=== PATIENT | female | born 1990 | race Caucasian/White ===

== ENCOUNTER 2018-01-27 04:05 | Emergency (ER) | payer MEDICAID, SELFPAY ==
[2018-01-27 04:06] VITALS: BP 108/74; PULSE 83; RESP 16; TEMP 36.8; O2SAT 100; BMI 27.3
--- NOTE | 2018-01-27 04:11 | CT_ITS ---
STUDY: CT ABDOMEN AND PELVIS WITHOUT CONTRAST REASON FOR EXAM: Female, 27 years old. Left lower quadrant pain RADIATION DOSAGE (If Supplied By Facility): CTDIvol = ( 7.14 ) mGy, DLP = ( 319.48 ) mGycm TECHNIQUE: Transaxial images were obtained from the dome of the diaphragm to the symphysis pubis without oral contrast, and without intravenous contrast. Sagittal and coronal images were reconstructed. Individualized dose optimization techniques were used for this CT. COMPARISON: None. FINDINGS: The visualized lung bases are unremarkable. The visualized portions of the heart are within normal limits. Normal liver. Normal gallbladder and extrahepatic biliary system. Normal spleen. Normal pancreas. Normal bilateral adrenal glands. Normal right kidney. 2 mm nonobstructing left renal stone. Normal visualized stomach. Normal small intestine. Normal colon. The appendix is visualized and appears normal. Normal abdominal aorta. Normal inferior vena cava. Normal retroperitoneum. Normal urinary bladder. Free pelvic fluid. Normal abdominal wall. Normal osseous structures. CT/Abdomen/Pelvis without Cont IMPRESSION: No evidence of diverticulitis. No evidence of acute intestinal pathology or acute obstructive uropathy. Free pelvic fluid. Electronically Signed: Roderick Pearson MD at 5:40 EDT Tel , Service support ,
[2018-01-27 04:22] LABS: Red Blood Cells-Urine 0 SEEN /hpf (0-5)
[2018-01-27 04:40] LABS: Color, Urine Yellow (Yellow); Glucose, Dipstick Normal (Normal); Ketone-Dipstick Negative (Negative); Leukocyte Esterase-Dipstick 100 /ul (Negative); Nitrite-Dipstick Negative (Negative); Occult Blood-Urine 10 /ul (Negative); Protein-Dipstick 30 mg/dl (Negative); Specific Gravity, Urine 1.025 (1.002-1.030); Urine Bilirubin Dipstick Negative (Negative); Urine Clarity Clear (Clear); Urine Urobilinogen Normal (Normal)
[2018-01-27 04:44] LABS: Absolute Lymphocyte Count 2.12 X10^3/ul (0.83-4.51); Absolute Neutrophil Count 4.9 X10^3/uL (2.0-7.7); Basophil# 0.03 X10^3/uL; Basophil% 0.4 % (0-1); Eosinophil# 0.21 X10^3/uL; Eosinophils% 2.6 % (0-5); Hematocrit 42.2 % (37-47); Hemoglobin 14.4 g/dl (12.0-15.0); Lymphocyte # 2.12 X10^3/ul (4.0); Lymphocyte % 26.4 % (19-41); Mean Corp Hgb Conc 34.1 g/gl (32-36); Mean Corpuscular Hgb 30.7 pg (27.0-32.0); Mean Platelet Vol. 10.8 fl (6.2-12.0); Monocyte# 0.77 X10^3/uL; Monocyte% 9.6 % (0-10); Neutrophil # 4.89 X10^3/uL (2.7-7.7); Neutrophil % 60.8 % (47-70); POSITIVE COUNT NO; POSITIVE DIFFERENTIAL NO; POSITIVE MORPHOLOGY NO; Platelet Count 204 K/mm3 (150-450); RBC Distribution Width CV 12.5 % (11.6-14.6); RBC Distribution Width SD 40.4 fl (35.1-43.9); Red Blood Count 4.69 M/mm3 (4.2-5.4)
[2018-01-27 04:46] LABS: Bacteria RARE /hpf (None Seen); Mucous, Urine 1+ /hpf (<or=2+); Squamous Epithelial Cells - UA 0-5 SEEN /hpf (5-10); White Blood Cells 0-5 SEEN /hpf (0-5)
[2018-01-27] MEDS: 0.9% Normal Saline 1,000 ML 125 ML IV (04:47)
[2018-01-27 04:56] LABS: Anion Gap 10 (5-15); BUN 9 mg/dL (7-18); Calcium,Total 8.4 mg/dL (8.5-10.1); Chloride 108 mmol/L (98-107); Creatinine, Serum 0.69 mg/dL (0.55-1.02); EST Glomerular Filtration Rate 109 mL/min (>60); Est Glom Filt Rate - Afr Amer 132 mL/min (>60); Estimated Creatinine Clearance 98.58 ml/min; Glucose 86 mg/dL (74-106); Potassium 3.9 mmol/L (3.5-5.1); Sodium Level 140 mmol/L (136-145)
[2018-01-27 05:03] LABS: Pregnancy, Serum, hCG Quali. NEGATIVE Negative (0-9 Nonpreg)
--- NOTE | 2018-01-27 05:45 | ED.VISSUMM ---
- ER Visit Summary Date of Service: 01/27/18 Chief Complaint: [Abdominal pain] History of Present Illness: The patient is a 27 F [presents to the emergency department with abdominal pain that started initially yesterday. Patient states she had some mild discomfort in the left upper quadrant yesterday afternoon. Patient states at 3 AM she was awoken with severe pain is more left lower quadrant. Patient states the pain initially severe. Patient thought that maybe she needed to urinate and after urinating had more lower abdominal discomfort. Patient denies hematuria. Patient denies any fever. Patient denies nausea or vomiting. Patient denies diarrhea. Patient denies blood in her stool or black tarry stool. Patient has not had pain like this before. Currently the pains improved and rates it a 5 out of 10.] Patient's last menstrual period was 09 January. Physical Examination: [HEENT-PERRLA, EOMI. Cranial nerves II through XII grossly intact. TMs clear. Mucous membranes moist. No adenopathy. Cardiovascular-regular rate and rhythm without murmur or ectopy Lungs-clear to auscultation, chest wall stable without crepitus or subcu emphysema Abdomen-normoactive bowel sounds, soft. patient has some mild tenderness in left lower quadrant. There is no rebound, rigidity, or perineal signs. No masses palpated. No CVA tenderness. Extremities-intact ?4, normal range of motion, normal pulses, atraumatic] Test Results: [CBC with differential was normal. Chemistries were normal. Urinalysis was unremarkable. HCG was negative. CT flank showed some free pelvic fluid but otherwise nothing acute.] Emergency Department Course and Treatment: [Patient did not want anything for pain in the department. On repeat examination at 5:45 AM she rates her pain a 2 out of 10 in her abdomen is benign.] I suspect patient may have had ovarian cyst that may have ruptured or midcycle pain. Do not feel her exam consistent with torsion. Treatment Plan: [Patient advised use ibuprofen for discomfort. Patient to follow-up with her primary care physician within next 3-5 days. Patient advised to return if worsening pain, fever, or condition should worsen in any way.] Disposition: [Discharged home in stable condition] Impression: [Abdominal pain-etiology uncertain] This note was generated with [employer] dictation software. It may contain incorrect words, spelling, and punctuation that were not noted in review of the chart prior to signing ED Disposition - Plan for ED Patient: Chief Complaint: Abd Pain Referrals: Shai Lyn MD [Primary Care Provider] -
--- NOTE | 2018-01-27 05:49 | ED.DEP ---
ED Disposition - Plan for ED Patient: Chief Complaint: Abd Pain Instructions: ED Abdominal Pain Unkn Cause Referrals: Shai Lyn MD [Primary Care Provider] - 3-5 Days
[2018-01-27 05:56] VITALS: BP 90/60; PULSE 76; RESP 17; O2SAT 100
--- NOTE | 2018-01-27 05:56 | ED.RN ---
IV DC'ED, CATHETER INTACT, SMALL GAUZE DRESSING PLACED. DISCHARGE INSTRUCTIONS GIVEN TO AND REVIEWED WITH PATIENT, PATIENT DENIES QUESTIONS OR CONCERNS AND VOICES UNDERSTANDING OF DISCHARGE INSTRUCTIONS. PT AMBULATES OUT OF ROOM WITHOUT DIFFICULTY.
== END 2018-01-27 05:56 | disposition home or self-care (01) ==
PROVIDERS: Emergency Provider Emergency Medicine; Family Provider Family Medicine; PCP Family Medicine
DX: R10.32 Left lower quadrant pain (principal)
CPT/HCPCS: 74176; 80048; 81001; 84703; 85025; 96360; 99283; J7030; A4216

== ENCOUNTER → 2018-02-13 13:00 | Outpatient (CLI) | payer MEDICAID, SELFPAY ==
--- NOTE | 2018-02-13 13:00 | DT_ITS ---
This patient was seen during an EMR downtime February 13, 2018 - February 20, 2018. This patient may have a combination of paper and electronic documentation or all paper documentation. All documentation is viewable within the e-chart portion of [facility] for each patient visit.
--- NOTE | 2018-02-13 13:46 | US_ITS ---
STUDY: ULTRASOUND OF THE FEMALE PELVIS - COMPLETE REASON FOR EXAM: Female, 27 years old. Pain. LMP: February 09, 2018. TECHNIQUE: Transabdominal and Transvaginal TECHNICAL QUALITY: Adequate. COMPARISON: CT of the abdomen and pelvis, January 28, 2018. FINDINGS: The uterus is anteverted and is in a midline position. The uterus measures 9 x 6.7 x 4.4 cm. Normal uterine cervix. The endometrium measures 3.3 mm in thickness, and is hyperechoic. There is no demonstrated endometrial mass. There is no demonstrated myometrial mass. I.U.D. - The patient does not have an I.U.D. The right ovary is visualized. The right ovary measures 2.7 x 2.2 x 2.4 cm. There are multiple follicles of the right ovary without a dominant cyst. There is no visualized right adnexal mass or complex lesion. There is normal arterial and normal venous vascularity. The left ovary is visualized. The left ovary measures 2.7 x 2.6 x 1.7 cm. There are multiple follicles of the left ovary without a dominant cyst. There is no visualized left adnexal mass or complex lesion. There is normal arterial and normal venous vascularity. There is no fluid in the cul-de-sac. The pre void volume of the bladder was to 87 ml. The urinary bladder is unremarkable. Polycystic ovary disease: No. US/Pelvic (Non ) IMPRESSION: Normal uterus and ovaries. Electronically Signed: Anatoliy Lloyd DO at 16:09 EDT Tel [phone], Service support ,
== END ==
PROVIDERS: Family Provider Family Medicine; PCP Family Medicine; Visit Provider Nurse Practitioner Women's Health
DX: R10.2 Pelvic and perineal pain (principal)
CPT/HCPCS: 76830; 76856; 93976

== ENCOUNTER → 2018-03-20 16:40 | Outpatient (CLI) | payer MEDICAID, SELFPAY ==
[2018-03-21 02:00] LABS: Chlamydia Trachomatis by PCR Negative (Negative); Neisserai gonorrhoeae by PCR Negative (Negative); Probe Check PASS; Sample Adequacy Control PASS; Specimen Processing Control PASS
[2018-03-24 14:31] LABS: HPV Reflexed? NOT INDICATED
== END ==
PROVIDERS: Family Provider Family Medicine; PCP Family Medicine; Visit Provider Obstetrics & Gynecology
DX: Z11.3 Encounter for screening for infections with a predominantly sexual mode of transmission (principal); Z12.4 Encounter for screening for malignant neoplasm of cervix
CPT/HCPCS: 87491; 87591; 88175; G0145

== ENCOUNTER → 2018-11-14 17:46 | Outpatient (CLI) | payer MEDICAID, SELFPAY ==
[2018-11-14 16:28] VITALS: BMI 26.9
== END ==
PROVIDERS: Family Provider Family Medicine; PCP Family Medicine; Referring Provider Obstetrics & Gynecology; Visit Provider Obstetrics & Gynecology
DX: N89.8 Other specified noninflammatory disorders of vagina (principal)
CPT/HCPCS: 87070; 87077; 87106; 87205

== ENCOUNTER → 2018-12-12 14:16 | Outpatient (CLI) | payer MEDICAID, SELFPAY ==
[2018-12-12 13:30] VITALS: BMI 26.9
[2018-12-12 14:59] LABS: Absolute Lymphocyte Count 1.88 X10^3/ul (0.83-4.51); Absolute Neutrophil Count 5.9 X10^3/uL (2.0-7.7); Basophil# 0.03 X10^3/uL; Basophil% 0.3 % (0-1); Eosinophil# 0.13 X10^3/uL; Eosinophils% 1.5 % (0-5); Hematocrit 38.8 % (37-47); Hemoglobin 13.3 g/dl (12.0-15.0); Lymphocyte # 1.88 X10^3/ul (4.0); Lymphocyte % 21.5 % (19-41); Mean Corp Hgb Conc 34.3 g/gl (32-36); Mean Corpuscular Hgb 31.3 pg (27.0-32.0); Mean Corpuscular Volume 91.3 fL (81-99); Mean Platelet Vol. 10.1 fl (6.2-12.0); Monocyte# 0.78 X10^3/uL; Monocyte% 8.9 % (0-10); Neutrophil # 5.91 X10^3/uL (2.7-7.7); Neutrophil % 67.6 % (47-70); Platelet Count 274 K/mm3 (150-450); RBC Distribution Width CV 12.4 % (11.6-14.6); RBC Distribution Width SD 41.3 fl (35.1-43.9); Red Blood Count 4.25 M/mm3 (4.2-5.4); White Blood Count 8.8 K/mm3 (4.4-11.0)
[2018-12-12 15:00] LABS: POSITIVE COUNT NO; POSITIVE DIFFERENTIAL NO; POSITIVE MORPHOLOGY NO
[2018-12-12 16:21] LABS: HIV - WCH Non-Reactive (Nonreactive); Rubella IgG 44.9 IU/mL
[2018-12-12 20:47] LABS: Chlamydia Trachomatis by PCR Negative (Negative); Neisserai gonorrhoeae by PCR Negative (Negative); Probe Check PASS; Sample Adequacy Control PASS; Specimen Processing Control PASS
[2018-12-15 03:39] LABS: Rapid Plasmin Reagin (RPR) NONREACTIVE (NONREACTIVE)
[2018-12-15 12:17] LABS: HEPATITIS B SURFACE AG Negative (Negative)
== END ==
PROVIDERS: Family Provider Family Medicine; PCP Family Medicine; Visit Provider Obstetrics & Gynecology
DX: Z31.430 Encounter of female for testing for genetic disease carrier status for procreative management (principal); Z34.90 Encounter for supervision of normal pregnancy, unspecified, unspecified trimester
CPT/HCPCS: 36415; 85025; 86592; 86703; 86762; 86850; 86900; 87086; 87088; 87340; 87491; 87591

== ENCOUNTER → 2018-12-22 | Outpatient (CLI) | payer MEDICAID, SELFPAY ==
[2018-12-12 13:30] VITALS: BMI 26.9
== END | disposition home or self-care (01) ==
LOC: PAVLAB 09:51
PROVIDERS: Family Provider Family Medicine; PCP Family Medicine; Visit Provider Obstetrics & Gynecology
DX: Z31.430 Encounter of female for testing for genetic disease carrier status for procreative management (principal)
CPT/HCPCS: 36415

== ENCOUNTER → 2019-01-11 | Outpatient (CLI) | payer MEDICAID, SELFPAY ==
[2019-01-11 11:12] VITALS: BMI 26.9
== END | disposition home or self-care (01) ==
LOC: PAVLAB 12:44
PROVIDERS: Family Provider Family Medicine; PCP Family Medicine; Visit Provider Nurse Practitioner Women's Health
DX: O28.5 Abnormal chromosomal and genetic finding on antenatal screening of mother (principal); Z3A.00 Weeks of gestation of pregnancy not specified
CPT/HCPCS: 36415

== ENCOUNTER 2019-04-17 11:05 | Outpatient (CLI) | payer MEDICAID, SELFPAY ==
[2019-04-03 10:37] VITALS: BMI 26.9
[2019-04-17 11:22] VITALS: BMI 30.7
[2019-04-17 11:36] LABS: Color, Urine Yellow (Yellow); Glucose, Dipstick Normal (Normal); Ketone-Dipstick 5 mg/dl (Negative); Leukocyte Esterase-Dipstick 500 /ul (Negative); Nitrite-Dipstick Negative (Negative); Occult Blood-Urine Negative /ul (Negative); Protein-Dipstick Negative (Negative); Specific Gravity, Urine 1.015 (1.002-1.030); Urine Bilirubin Dipstick Negative (Negative); Urine Clarity Sl. Cloudy (Clear); Urine Urobilinogen Normal (Normal)
[2019-04-17 12:40] LABS: ROM Internal Control Test YES-OK TO RESULT pt. (Internal QC)
[2019-04-17 12:41] LABS: ROM Patient Test Negative (Negative)
[2019-04-17 12:48] LABS: Fetal Fibronectin Negative
--- NOTE | 2019-04-19 06:38 | OB.TRI.PN_ITS ---
Progress Notes Date of Service: 04/17/19 Progress Note: patient co contractions and intermittent abdominal pain fht 140 moderate variability [id number] accels no decelerations category I tracing [place]: no regular neg ffn no cervical dilation A/P: threatened labor neg ffn reactive nst dc home labor precautions Laboratory Studies: Laboratory Tests 04/17/19 04/17/19 04/17/19 Range/Units 12:00 12:00 11:15 Urine Color Yellow (Yellow) Urine Clarity Sl. Cloudy (Clear) Urine pH 6.0 (5.0 - 8.0) Ur Specific [place] 1.015 (1.002-1.030) Urine Protein Negative (Negative) mg/dl Urine Glucose (UA) Normal (Normal) mg/dl Urine Ketones 5 H (Negative) mg/dl Urine Occult Blood Negative (Negative) /ul Urine Nitrite Negative (Negative) Urine Bilirubin Negative (Negative) mg/dL Urine Urobilinogen Normal (Normal) mg/dl Ur Leukocyte Esterase 500 H (Negative) /ul Vag Amniotic Fld Detect Negative (Negative) Fibronectin Negative Multi Select Codes - Urinary/Genital Urinary/Genital CPT Codes: 47673-54 non-stress test Interp
== END 2019-04-17 13:50 | disposition home or self-care (01) ==
LOC: WPOUT 11:17 → WP 11:17
PROVIDERS: Family Provider Family Medicine; PCP Family Medicine; Referring Provider Obstetrics & Gynecology; Visit Provider Obstetrics & Gynecology
DX: O60.00 Preterm labor without delivery, unspecified trimester (principal); Z3A.00 Weeks of gestation of pregnancy not specified
CPT/HCPCS: 59025; 59050; 81002; 82731; 84112; 87086; 87088; 99218; G0378

== ENCOUNTER → 2019-04-24 10:53 | Outpatient (CLI) | payer MEDICAID, SELFPAY ==
[2019-04-24 10:49] VITALS: BMI 30.7
[2019-04-24 11:06] LABS: Absolute Lymphocyte Count 1.84 X10^3/uL (0.83-4.51); Absolute Neutrophil Count 5.6 X10^3/uL (2.0-7.7); Basophil# 0.04 X10^3/uL; Basophil% 0.5 % (0-1); Eosinophil# 0.19 X10^3/uL; Eosinophils% 2.3 % (0-5); Hematocrit 38.5 % (37-47); Lymphocyte # 1.84 X10^3/ul (4.0); Lymphocyte % 22.2 % (19-41); Mean Corp Hgb Conc 33.8 g/dL (32-36); Mean Corpuscular Hgb 31.4 pg (27.0-32.0); Mean Platelet Vol. 9.8 fl (6.2-12.0); Monocyte# 0.53 X10^3/uL; Monocyte% 6.4 % (0-10); NRBC Flagged by Analyzer 0 % (0-5); Neutrophil % 67.8 % (47-70); Platelet Count 205 K/mm3 (150-450); RBC Distribution Width CV 12.1 % (11.6-14.6); RBC Distribution Width SD 41.5 fl (35.1-43.9); Red Blood Count 4.14 M/mm3 (4.2-5.4); White Blood Count 8.3 K/mm3 (4.4-11.0)
[2019-04-24 11:16] LABS: Glucose Challenge Gest 1H 50g 78 mg/dL (70-140)
== END ==
PROVIDERS: Family Provider Family Medicine; PCP Family Medicine; Referring Provider Obstetrics & Gynecology; Visit Provider Obstetrics & Gynecology
DX: Z34.83 Encounter for supervision of other normal pregnancy, third trimester (principal); Z3A.28 28 weeks gestation of pregnancy
CPT/HCPCS: 36415; 82950; 85025

== ENCOUNTER → 2019-06-21 | Outpatient (CLI) | payer MEDICAID, SELFPAY ==
[2019-06-21 11:12] VITALS: BMI 30.7
== END | disposition home or self-care (01) ==
LOC: LABSPEC 12:59
PROVIDERS: Family Provider Family Medicine; PCP Family Medicine; Referring Provider Obstetrics & Gynecology; Visit Provider Obstetrics & Gynecology
DX: Z34.90 Encounter for supervision of normal pregnancy, unspecified, unspecified trimester (principal)
CPT/HCPCS: 87081

== ENCOUNTER 2019-07-11 12:36 | Inpatient (IN) | payer MEDICAID, SELFPAY ==
[2019-07-05 09:21] VITALS: BMI 30.7
[2019-07-12 01:13] VITALS: BMI 33.0
[2019-07-12] MEDS: Lactated Ringers 1,000 ML 200 ML IV ×2 (01:53→06:35)
[2019-07-12 02:12] LABS: Absolute Lymphocyte Count 1.71 X10^3/uL (0.83-4.51); Absolute Neutrophil Count 7.5 X10^3/uL (2.0-7.7); Basophil# 0.04 X10^3/uL; Basophil% 0.4 % (0-1); Eosinophil# 0.13 X10^3/uL; Eosinophils% 1.2 % (0-5); Hematocrit 35.6 % (37-47); Hemoglobin 11.8 g/dL (12.0-15.0); Lymphocyte # 1.71 X10^3/ul (4.0); Lymphocyte % 16.4 % (19-41); Mean Corp Hgb Conc 33.1 g/dL (32-36); Mean Corpuscular Hgb 29.4 pg (27.0-32.0); Mean Corpuscular Volume 88.8 fL (81-99); Mean Platelet Vol. 10.6 fl (6.2-12.0); Monocyte# 0.97 X10^3/uL; Monocyte% 9.3 % (0-10); NRBC Flagged by Analyzer 0 % (0-5); Neutrophil # 7.45 X10^3/uL (2.7-7.7); Neutrophil % 71.5 % (47-70); Platelet Count 186 K/mm3 (150-450); RBC Distribution Width CV 13.1 % (11.6-14.6); RBC Distribution Width SD 42.9 fl (35.1-43.9); Red Blood Count 4.01 M/mm3 (4.2-5.4); White Blood Count 10.4 K/mm3 (4.4-11.0)
[2019-07-12] MEDS: Ondansetron 4 MG/2 ML Vial IV (04:14)
--- NOTE | 2019-07-12 05:34 | PCM.HP.OB ---
- Problem List (1) Active labor at term Status: Acute (2) control counseling Status: Acute Comment: wants tubal ligation. title 19 signed 05/22/19 (3) positive polycystic kidney recessive gene Status: Acute Comment: FOB negative testing (4) Depression affecting Status: Acute Comment: no meds at present, counseling encouraged (5) Status: Acute Qualifiers: Comment: NIPT- low risk male declines AFP screening. nl ultrasound. (6) Supervision of normal Status: Acute Qualifiers: Comment: PRR DEMETRICE 07/17/19 boy Shaun PC:Shobha Carter Zoey FOB Brian (has had penitentiary time in ) History Date of Admission: 05/09/17 Final DEMETRICE: 07/17/19 Final DEMETRICE Source: US <20 weeks Gestational age: 39 Weeks and 3 Days History of this : This is a 28 year-old, at 39 weeks gestational age presents IAL srom. she has had an uncomplicated . she co regular ctx and clear lof since 1 am Allergies No Known Allergies Allergy (Verified 07/12/19 01:14) Home Medications: Home Medications Ranitidine HCl [Acid Child Watch Attendant] 150 mg PO BID 07/12/19 Smoking Status: Never smoker History Past Pregnancies: Past Pregnancies 3 previous term Labs: Mom's Problem List Problem Status Onset Code Active labor at term Acute Mom's Labs & Results 07/12/19 07/12/19 01:53 01:53 WBC 10.4 RBC 4.01 L Hgb 11.8 L Hct 35.6 L MCV 88.8 MCH 29.4 MCHC 33.1 RDW Std Deviation 42.9 RDW Coeff of Anna 13.1 Plt Count 186 MPV 10.6 Immature Gran % (Auto) 1.200 H Neut % (Auto) 71.5 H Lymph % (Auto) 16.4 L Casey % (Auto) 9.3 Eos % (Auto) 1.2 Baso % (Auto) 0.4 Absolute Neuts (auto) 7.5 Absolute Lymphs (auto) 1.71 Nucleated RBC % 0 Blood Type AB POSITIVE Antibody Screen NEGATIVE Course Did the patient receive Yes care? Labs Blood Type: AB RH: POSITIVE RPR/VDRL/Syphilis Nonreactive Rubella status Immune HbSAg Negative Date Done: 12/12/18 Chlamydia Negative Gonorrhea Negative HIV/AIDS Non-Reactive Group B Strep: Negative Current Obstetrical History Gestational Diabetes No Incompetent Cervix No Infertility No IUGR No Macrosomia No Hypertension/Pre-eclampsia No Placenta Previa/Abruption No PTL/PROM No Uterine anomaly No Oligohydramnios No Polyhydramnios No Multiple gestation No Past Medical History Asthma Yes Diabetes No Hypertension No Heart disease No Mitral valve prolapse No Neurologic/Seizure disorder/ No Migraines Kidney disease Yes: Recessive kidney gene Liver disease No Varicosities No Clotting disorders/Hx of DVT No Thyroid Dysfunction Yes: hyperthyroidism, not following up regularly with PCP Other medical diseases No Psychiatric disorders Yes: pp depression Major trauma No Abnormal PAP smear No Sleep apnea No Mammogram in the last 2 years No Social History Marital Status: SINGLE Alleged father Clarence Bourgeois Hx Smoking No Smoking Status Never smoker Expected Delivery Method: Spontaneous Vaginal Review of Systems Constitutional: Denies: Fever, Malaise Eyes: Denies: Blurred vision, Vision Change HEENT: Denies: Head Aches, Visual Changes Cardiovascular: Denies: Chest Pain, Palpitations Respiratory: Denies: Cough, Shortness of Breath, Wheezing Gastrointestinal: Denies: Abdominal Pain, Diarrhea, Nausea, Vomiting Genitourinary: Denies: Dysuria, Hematuria Musculoskeletal: Denies: Joint Pain, Muscle pain Skin: Denies: Lesions, Rash Neurological: Denies: Blurred vision, Focal weakness, Headaches Psychiatric: Denies: Anxiety, Depression Endocrine: Denies: Heat/ Cold Intolerance Hematologic/ Lymphatic: Denies: Easy Bruising, Easy Bleeding Physical Exam General: Alert, Cooperative, No apparent distress HEENT: Atraumatic, Normocephalic. Negative for: Thyromegaly, Lymphadenopathy Cardiovascular: Regular rate Lungs: Normal air movement Abdomen: Soft, Non Tender, Gravid Neurological: Deep Tendon Reflexes 2+/4 and Symmetrical, Neuro grossly intact. Negative for: Clonus SUPERVISOR TANK HOUSE: Normal external genitalia. Negative for: Vulvar lesions Estimated gestational size: Appropriate for gestational size Presentation: Cephalic Cervix Dilation (cm): 4 Assessment/Plan All Active Problems (Last Reviewed 07/05/19 @ 09:20 by Matilde Bustos) Active labor at term (Acute) control counseling (Acute) positive polycystic kidney recessive gene (Acute) Depression affecting (Acute) (Acute) Supervision of normal (Acute) This is a 28 year-old, , at 39 weeks gestational age presents IAL SROM. IAL plan minimal intervention but open to epidural desires PPTL gbs neg
[2019-07-12] MEDS: Oxytocin 30 units/NS 500 ml 30 UNITS/500 ML IV.SOLN IV (06:35)
[2019-07-12] MEDS: Lactated Ringers 500 ML 999 ML IV (06:42)
[2019-07-12] MEDS: fentaNYL-bupivacaine (epidural) 100 ML BAG EPIDURAL (07:25)
[2019-07-12] MEDS: Oxytocin 30 units/NS 500 ml 30 UNITS/500 ML IV.SOLN 334 UNITS IV (08:25)
[2019-07-12] MEDS: Acetaminophen 325 MG Tablet PO (11:03)
[2019-07-12 11:53] VITALS: BP 105/61; PULSE 81; RESP 16; TEMP 36.6
[2019-07-12] MEDS: Naproxen 250 MG Tablet 500 MG PO (13:20)
[2019-07-12 16:20] VITALS: BP 98/61; PULSE 86; RESP 12; TEMP 36.3
--- NOTE | 2019-07-12 16:56 | OP.PCM_ITS ---
Problem List (1) Active labor at term Status: Acute (2) control counseling Status: Acute Comment: wants tubal ligation. title 19 signed 05/22/19 (3) positive polycystic kidney recessive gene Status: Acute Comment: FOB negative testing (4) Depression affecting Status: Acute Comment: no meds at present, counseling encouraged (5) Status: Acute Qualifiers: Comment: NIPT- low risk male declines AFP screening. nl ultrasound. (6) Supervision of normal Status: Acute Qualifiers: Comment: PRR DEMETRICE 07/17/19 boy [place] PC:Shobha Carter Zoey FOB Brian (has had [facility] time in ) Vaginal Delivery Maternal Presentation: Active Labor ial 39 weeks Amniotic Membrane Rupture Type: Spontaneous at home Amniotic Fluid Description: Clear Date of Procedure: 07/12/19 Pre-Operative Diagnosis: srom ial Post-Operative Diagnosis: same Surgery/ Procedure Performed: Spontaneous Vaginal Delivery Type of Anesthesia: Epidural Description of Procedure: Patient began pushing and delivered the head in the ZOHREH presentation. The head was delivered atraumatically . The anterior and posterior shoulders delivered without complication followed by the rest of the infant and the was placed on the maternal abdomen. Delayed cord clamping was employed for approximately 60 seconds. Cord was clamped and cut and gentle traction was applied to the cord and the placenta delivered spontaneously immediately following it was noted to be intact with three-vessel cord. The perineum and vagina were inspected and noted to have no laceration. Patient and tolerated delivery well. Presentation: ZOHREH Placental Delivery Description: Spontaneous Placenta Disposition: [facility] Cord Entanglement: None A gender: Male Episiotomy Description: None Laceration: None Medications given after delivery: IV Pitocin Complications: None
[2019-07-12] MEDS: Acetaminophen 500 MG Tablet 1000 MG PO (19:31)
[2019-07-12] MEDS: oxyCODONE 5 MG Tablet PO (20:50)
[2019-07-12 20:51] VITALS: BP 108/58; PULSE 78; RESP 18; TEMP 36.3
[2019-07-12 23:40] VITALS: BP 107/55; PULSE 75; RESP 16; TEMP 36.6
--- NOTE | 2019-07-13 00:34 | NURSING ---
Security called d/t pt. and FOB arguing loudly in room. This RN heard pt. tell FORaul to just go back and do drugs like you used to. NAISHA stormed off unit before security could show up. This RN went into room to check on pt. and infant. Pt. denies any safety concerns at this time. She told this RN that ANISHA just got out of [facility] recently and restarted on his Suboxone. States that he keeps on pacing around and getting in and out of shower and bothering her, which has lead to the arguing and yelling. Pt. states she doesn't want to kick him off the unit because it's cold outside and he wouldn't have a way to get anywhere. Pt. asked how early she could leave tomorrow because she does not live with him and won't have to deal with his behaviors. RN asked again if their were any safety concerns for her safety or 's and pt. again denied. This RN told pt. to call out and ask for orange juice if ANISHA acts up and she needs help or has safety concerns.
[2019-07-13 03:35] VITALS: BP 99/59; PULSE 67; RESP 17; TEMP 36.4; O2SAT 97
[2019-07-13] MEDS: Senna/Docusate Sodium 1 Tablet PO (03:38)
[2019-07-13] MEDS: Naproxen 250 MG Tablet 500 MG PO (03:38)
[2019-07-13] MEDS: oxyCODONE 5 MG Tablet PO (08:10)
[2019-07-13 08:28] VITALS: BP 90/54; PULSE 72; RESP 16; TEMP 36.4
--- NOTE | 2019-07-13 08:29 | NURSING ---
pt. asymptomatic, denies dizziness
--- NOTE | 2019-07-13 08:55 | NURSING ---
This RN discussed same plan with pt. of previous RN of pt. calling to ask for orange juice if she has safety concerns, pt. denied concerns
[2019-07-13] MEDS: Acetaminophen 500 MG Tablet 1000 MG PO (10:30)
--- NOTE | 2019-07-13 11:39 | PCM.PN.OB ---
Patient Problems: Active and Suspected Problems (Last Reviewed 07/05/19 @ 09:20 by Matilde Bustos) Active labor at term (Acute) Subjective: doing well no complaints pain controlled no CP SOB N V ambulating well tolerating po lochia moderate, going well - Physical Exam Vitals/I&O's: Vital Signs Temp Pulse Resp BP Pulse Ox 97.5 F L 72 16 90/54 L 97 07/13/19 08:28 07/13/19 08:28 07/13/19 08:28 07/13/19 08:28 07/13/19 03:35 Oxygen Delivery Method Room Air Weight: 180 lb 15.992 oz Body Mass Index (BMI) 33.0 Intake and Output for Last 24 Hours 07/11/19 07/12/19 07/13/19 23:59 23:59 23:59 Intake Total 2441.83 / 2441.83 Output Total 50 / 50 Balance 2391.83 / 2391.83 Current Medications Acetaminophen (Tylenol) 1,000 mg PO Q8H PRN PRN PRN Reason: Pain Score 1-3/10 Last Admin: 07/13/19 10:30 Dose: 1,000 mg Documented by: Bisacodyl (Dulcolax) 10 mg RECTAL UD PRN PRN Reason: If no BM Dibucaine (Dibucaine) 1 applic TOPICAL TID PRN PRN; Protocol PRN Reason: Discomfort Hydrocortisone (Hytone) 1 applic TOPICAL TID PRN PRN; Protocol PRN Reason: Discomfort Methylergonovine Maleate (Methergine) 0.2 mg IM X1 PRN PRN Reason: Excess bleeding/uterine atony Naproxen (Naprosyn) 500 mg PO Q8H PRN PRN PRN Reason: Pain Score 1-3/10 Last Admin: 07/13/19 03:38 Dose: 500 mg Documented by: Ondansetron HCl (Zofran) 4 mg IV Q4H PRN PRN PRN Reason: Nausea Oxycodone HCl (Oxyir) 5 - 10 mg PO Q4H PRN PRN PRN Reason: Pain Score 4-10/10 Last Admin: 07/13/19 08:10 Dose: 5 mg Documented by: Senna/Docusate Sodium (Senokot-S, Saba-Colace) 1 - 2 tablet PO DAILY PRN PRN PRN Reason: Constipation Last Admin: 07/13/19 03:38 Dose: 1 tablet Documented by: Simethicone (Mylicon) 80 mg PO HS PRN PRN Reason: Indigestion/Stomach pain Sodium Chloride () 5 - 15 ml IV UD PRN PRN Reason: SALINE FLUSH Medical Necessity - Tobacco Use Smoking Status: Never smoker Assessment/Plan All Active Problems (Last Reviewed 07/05/19 @ 09:20 by Matilde Bustos) Active labor at term (Acute) control counseling (Acute) positive polycystic kidney recessive gene (Acute) Depression affecting (Acute) (Acute) Supervision of normal (Acute) s/p PPD #1 1. routine post delivery care 2. breast feeding- support given 3. rh positive 4. rubella immune
--- NOTE | 2019-07-13 11:40 | DCINST_ITS ---
Discharge Diet: No Restrictions Discharge Activity: Return to Normal Activity, May not drive while taking narcotic pain medications., May Shower May resume sexual activity in: 4-6 weeks Call your doctor if your incision/area has: Continuous Slow Oozing, Sudden Increased Bleeding, Increased Pain/ Swelling, Increased Redness, Foul Smelling Discharge Additional Instructions: If you experience any of the following, contact your healthcare provider. * Bleeding that soaks a pad every hour for 2 hours * Fever 100.4 or higher * Unrelieved incision or abdominal pain * Swelling, redness, discharge or bleeding from your incision or episiotomy site * Your incision begins to separate * Problems urinating (including inability to urinate or burning while urinating). * Visual changes * Severe headache * Flu-like symptoms * Pain or redness in one of both of your breasts * Pain, warmth, tenderness or swelling in your legs, especially the calf area * Frequent nausea and vomiting * Symptoms of depression or anxiety If you experience any of the following, call 911 or go to the nearest Emergency Room. * Chest pain * Problems breathing * Seizure activity * Partial or complete paralysis of a body part, slurred speech, weakness or drooping of the face, or a sudden inability to walk or hold your balance Allergies/Adverse Reactions: Allergies No Known Allergies Allergy (Verified 07/12/19 01:14) Medications to take at Discharge Ranitidine HCl [Acid Radiopharmacist] 150 mg PO BID 07/12/19 Please Follow Up With: Adeola Fleming MD - [phone] When: Call to make an appointment with your doctor in 6 weeks. If you had elevated Blood pressure or 4th degree laceration you will need to be seen in 2 w [facility]. Primary Care Physician: Shai Lyn MD [Primary Care Provider] - Test Results: Test results from this visit will be discussed in further detail at your follow- up appointment, if applicable.
--- NOTE | 2019-07-13 11:40 | PCM.DCVAG ---
Discharge Diet: No Restrictions Discharge Activity: Return to Normal Activity, May not drive while taking narcotic pain medications., May Shower May resume sexual activity in: 4-6 weeks Call your doctor if your incision/area has: Continuous Slow Oozing, Sudden Increased Bleeding, Increased Pain/ Swelling, Increased Redness, Foul Smelling Discharge Additional Instructions: If you experience any of the following, contact your healthcare provider. Bleeding that soaks a pad every hour for 2 hours Fever 100.4 or higher Unrelieved incision or abdominal pain Swelling, redness, discharge or bleeding from your incision or episiotomy site Your incision begins to separate Problems urinating (including inability to urinate or burning while urinating). Visual changes Severe headache Flu-like symptoms Pain or redness in one of both of your breasts Pain, warmth, tenderness or swelling in your legs, especially the calf area Frequent nausea and vomiting Symptoms of depression or anxiety If you experience any of the following, call 911 or go to the nearest Emergency Room. Chest pain Problems breathing Seizure activity Partial or complete paralysis of a body part, slurred speech, weakness or drooping of the face, or a sudden inability to walk or hold your balance Allergies/Adverse Reactions: Allergies No Known Allergies Allergy (Verified 07/12/19 01:14) Medications to take at Discharge Ranitidine HCl [Acid Roll Forming Machine Set Up Operator] 150 mg PO BID 07/12/19 Please Follow Up With: Adeola Fleming MD - [phone] When: Call to make an appointment with your doctor in 6 weeks. If you had elevated Blood pressure or 4th degree laceration you will need to be seen in 2 weeks. Primary Care Physician: Shai Lyn MD [Primary Care Provider] - Test Results: Test results from this visit will be discussed in further detail at your follow-up appointment, if applicable.
[2019-07-13 14:05] VITALS: BP 99/58; PULSE 75; RESP 18; TEMP 36.6
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
== END 2019-07-13 15:45 | disposition home or self-care (01) | DRG 560 ==
PROVIDERS: Admitting Provider Obstetrics & Gynecology; Family Provider Family Medicine; PCP Family Medicine; Referring Provider Obstetrics & Gynecology; Visit Provider Obstetrics & Gynecology
DX: O80 Encounter for full-term uncomplicated delivery (principal); Z3A.39 39 weeks gestation of pregnancy; Z37.0 Single live birth
CPT/HCPCS: 59025; 59050; 85025; 86850; 86900; 86901; 99218; J7120; G0378; J2405

== ENCOUNTER 2019-08-21 09:55 | Day surgery (SDC) | payer MEDICAID, SELFPAY ==
[2019-08-21] VITALS (7 sets, daily range): BP systolic 106–114; BP diastolic 70–81; PULSE 74–105; RESP 16; TEMP 36.7–36.8; O2SAT 93–100; BMI 30.1
--- NOTE | 2019-08-21 05:59 | PCM.HP.STD ---
Problem List (1) control counseling Status: Acute Comment: wants tubal ligation. title 19 signed 05/22/19 History of Present Illness Date of Admission: 08/21/19 The patient is a 28 year old F presents for sterilization. she has had 4 vaginal deliveries and desires permanent control. Past Medical History Allergies No Known Allergies Allergy (Verified 08/16/19 08:52) Home Medications: Ambulatory Orders Medication Instructions Recorded Citalopram [Celexa] 10 mg PO DAILY 08/16/19 Naproxen [Naprosyn] 250 - 500 mg PO Q8H PRN PRN #30 tab 08/21/19 Oxycodone HCl/Acetaminophen 1 - 2 tab PO Q6H PRN PRN 7 Days 08/21/19 [Percocet 5-325] #15 tab Smoking Status: Never smoker Tobacco Use: Non-smoker Review of Systems Constitutional: Denies: Fever, Malaise Eyes: Denies: Blurred vision, Vision Change HEENT: Denies: Head Aches, Visual Changes Cardiovascular: Denies: Chest Pain, Palpitations Respiratory: Denies: Cough, Shortness of Breath, Wheezing Gastrointestinal: Denies: Abdominal Pain, Diarrhea, Nausea, Vomiting Genitourinary: Denies: Dysuria, Hematuria Musculoskeletal: Denies: Joint Pain, Muscle pain Skin: Denies: Lesions, Rash Neurological: Denies: Blurred vision, Focal weakness, Headaches Psychiatric: Denies: Anxiety, Depression Endocrine: Denies: Heat/ Cold Intolerance Hematologic/ Lymphatic: Denies: Easy Bruising, Easy Bleeding VTE Information - Inpt Only VTE Present on Admission: No - Physical Exam Vitals/I&O's: Body Mass Index (BMI) 33.0 General: Alert, Oriented x3, Cooperative HEENT: Atraumatic, EOMI, Normocephalic Neck: Supple Lungs: Clear to auscultation, Normal air movement Cardiovascular: Regular rate, No murmurs Abdomen: Bowel Sounds Present, Soft, Non Tender Extremities: No edema Skin: No rashes, No breakdown Musculoskeletal: No Tenderness to Palpation of Joints or Extremities Neurological: Neuro grossly intact Psych/Mental Status: Normal Affect, Appropriate Current Medications Lactated Ringer's () 1,000 mls @ 12.5 mls/hr IV .Q48H [facility] Assessment/Plan All Active Problems (Last Reviewed 10/24/19 @ 09:20 by Matilde Bustos) Active labor at term (Acute) control counseling (Acute) positive polycystic kidney recessive gene (Acute) Depression affecting (Acute) (Acute) Supervision of normal (Acute) sterilization plan laparoscopic bilateral salpingectomy After discussing the patient's diagnosis and treatment plan options, patient wishes to proceed with surgical management. I have discussed with the patient the risks, benefits, and alternatives of the procedure which include but are not limited to risks of anesthesia, bleeding, infection, possible damage to bowel, bladder, or surrounding vasculature which could lead to additional surgery to evaluate any complications. Patient agrees to procedure and wishes to proceed. ACOG/uptodate references given for additional information regarding procedure. UPDATE- I have seen the patient and performed any clinically relevant updates to the history and physical exam. Adeola Fleming MD
[2019-08-21 10:19] LABS: Internal QC Validated? YES +Cl - CLEAR BKGD; Pregnancy, Urine Negative Negative
[2019-08-21] MEDS: Lactated Ringers 1,000 ML 100 ML IV (10:31)
[2019-08-21] MEDS: Lactated Ringers 1,000 ML 12.5 ML IV (11:12)
--- NOTE | 2019-08-21 11:35 | FALS_PTH ---
PATIENT: TONI UP LOC: [facility] U#:[id number] AGE/SX: 28/F ROOM: RE08/21/[address]: Dr. Adeola Fleming MD : [id number] BED: DIS: 08/21/2019 SPEC #: [id number] RECD: 08/21/19 14:29 STATUS: OLIVA RETessy #: [id number] JOSE RAMON: 08/21/19 11:[address]: Adeola Fleming DEPT: SURGICAL PATHOLOGY RECD BY: Lester Peña ENTERED: 08/22/19 09:55 SP TYPE: FALL TUBES OTHR DR: Dr. Shai Lyn MD Tissues: Fallopian tube Procedures: Surgery Specimen Level II HEADER OPERATION: Laparoscopic salpingectomy PRE-OP DIAGNOSIS: Sterilization request TISSUE SUBMITTED: Bilateral fallopian tubes MICROSCOPIC DIAGNOSIS Right and left fallopian tubes, bilateral salpingectomies: Two complete segments of fallopian tubes with no pathologic change. AM:rodger 08/23/19 MICROSCOPIC DESCRIPTION Slides are reviewed. GROSS DESCRIPTION Received is one container labeled with the patient's name and designated bilateral fallopian tubes. The specimen consists of bilateral fallopian tubes including fimbrial ends each measuring 6.5 cm in length and 0.5 cm in diameter. Sections do not reveal any mass lesion. The fallopian tubes are not identified as right or left. Sections reveal unremarkable cut surfaces. Instructional Services Librarian sections are submitted in two cassettes with each cassette containing one fallopian tube. / BERONICA:rodger 08/22/19 TC:4 CPT: 67336 x2
[2019-08-21] MEDS: Bupivacaine 0.25% 30 ML Vial (11:50)
--- NOTE | 2019-08-21 11:53 | OP.PCM_ITS ---
Problem List (1) control counseling Status: Acute Comment: wants tubal ligation. title 19 signed 05/22/19 Report of Operation Date of Procedure: 08/21/19 Pre-Operative Diagnosis: sterilization Post-Operative Diagnosis: same Surgery/Procedure Performed:: laparoscopic bilateral salpingectomy Description of Surgical Findings:: nl pelvis branch operations manager: Mary Allen Type of Anesthesia:: General Special Medications: none Specimen's removed: tubes Drains: none Estimated Blood Loss (mL): 25 Fluids Replaced: crystalloid Description of Procedure: Patient was taken in the operating room and was placed under general anesthesia was prepped and draped in normal sterile fashion in the dorsal lithotomy position. Bladder was drained of clear urine and SCDs were on preoperatively. Uterus was sounded and a uterine manipulator was placed after dilating. Attention was then paid to the abdominal portion of the procedure and the umbilicus was elevated with towel clamps and injected with Marcaine and after a 5 mm incision was made and the Veress needle was entered into the abdomen confirmed to be intra-abdominal with a low opening pressure of less than 5 mmHg. Abdomen was insufflated with CO2 gas and a 5 mm optical trocar was placed under direct visualization. A left lower quadrant 5 mm port and a 5 mm port suprapubically were placed under direct visualization. Uterus was well visualized and bilateral fallopian tubes identified and bilateral tubes were elevated and transecting across the mesosalpinx and the attachment to the uterine corpus bilaterally the tubes were removed without complication. Excellent hemostasis was noted. Fallopian tubes were removed through the lower port sites without complication. Liver and upper abdomen were visualized notably within normal limits and no other gross abnormalities were seen in the abdomen. All instruments removed from the abdomen after gas was desufflated. Port sites were closed with 3-0 Monocryl Steri's and op sites were applied. All instruments removed from the vagina and patient was awoken and taken recovery in stable condition. Grafts/Implants Used: none - Complications none Multi Select Codes - Urinary/Genital Urinary/Genital CPT Codes: 93060 Laproscopic BS/O
--- NOTE | 2019-08-21 11:55 | DCINST_ITS ---
Discharge Diet: No Restrictions - Increase fluid intake for the next 48 hours. Discharge Activity: Return to Normal Activity, May Drive - when you are no longer taking narcotic pain medications., May Shower, May Take a Tub Bath - in 7 days Additional Activity Instructions:: Ambulate often the next week after surgery. Nothing in the vagina for 5 days. Call your doctor if your incision/area has: Continuous Slow Oozing, Sudden Increased Bleeding, Increased Pain/ Swelling, Increased Redness, Foul Smelling Discharge Call your doctor if you observe: Fever of 101 or Higher Allergies/Adverse Reactions: Allergies No Known Allergies Allergy (Verified 08/16/19 08:52) Medications to take at Discharge Citalopram [Celexa] 10 mg PO DAILY 08/16/19 Naproxen [Naprosyn] 250 - 500 mg PO Q8H PRN PRN #30 tab 08/21/19 Oxycodone HCl/Acetaminophen [Percocet 5-325] 1 - 2 tab PO Q6H PRN PRN 7 Days #15 tab 08/21/19 The following prescriptions were given: Naproxen [Naprosyn] 250 - 500 mg PO Q8H PRN PRN #30 tab PRN Reason: MILD PAIN Transmission Status: Received by [id number] Oxycodone HCl/Acetaminophen [Percocet 5-325] 1 - 2 tab PO Q6H PRN PRN 7 Days #15 tab PRN Reason: Pain Transmission Status: Received by [id number] Primary Care Physician: Shai Lyn MD [Primary Care Provider] - Test Results: Test results from this visit will be discussed in further detail at your follow- up appointment, if applicable. Please Follow Up With: Adeola Fleming MD - [phone]
== END 2019-08-21 13:59 | disposition home or self-care (01) ==
LOC: SDC 09:56 → AC 09:57
PROVIDERS: Anesthesiology; Family Provider Family Medicine; PCP Family Medicine; Referring Provider Obstetrics & Gynecology; Visit Provider Obstetrics & Gynecology
PROC: (CPT 58661; principal; 2019-08-21 11:20)
DX: Z30.2 Encounter for sterilization (principal)
CPT/HCPCS: 00840; 58661; 81025; 88302; J7120; C1760; J2405

== ENCOUNTER 2019-08-27 12:45 | Emergency (ER) | payer MEDICAID, SELFPAY ==
[2019-08-21 10:20] VITALS: BMI 30.1
[2019-08-27 12:47] VITALS: BP 96/66; PULSE 93; RESP 17; TEMP 36.7; O2SAT 100; BMI 30.4
--- NOTE | 2019-08-27 12:47 | EKG12_ITS ---
Test Reason : PALPS Blood Pressure : / mmHG Vent. Rate : 070 BPM Atrial Rate : 070 BPM P-R Int : 178 ms QRS Dur : 094 ms QT Int : 404 ms P-R-T Axes : 008 020 004 degrees QTc Int : 436 ms Sinus rhythm with marked sinus arrhythmia Otherwise normal ECG Confirmed by CISCO LOYA, JOCELINE ([id number]), editorial manager MARCELA GARCIA ([id number]) on 08/29/2019 11:58:27 AM Referred By: JWAYYELiliane Confirmed By:JOCELINE PECK MD
--- NOTE | 2019-08-27 14:05 | CT_ITS ---
STUDY: CT BRAIN WITHOUT CONTRAST REASON FOR EXAM: Female, 28 years old. Dizziness RADIATION DOSAGE (If Supplied By Facility): CTDIvol = ( 44.99 ) mGy, DLP = ( 745.49 ) mGycm TECHNIQUE: Transaxial CT imaging of the brain was performed without administration of intravenous contrast material. Individualized dose optimization techniques were used for this CT. COMPARISON: No relevant priors. FINDINGS: Normal soft tissue structures. Normal calvarium. Normal size ventricles and extra-axial spaces for the patient''s age. Normal white matter tracts of the cerebral hemispheres. Normal basal ganglia and thalami. Normal brainstem. Normal cerebellum. There is no intracranial hemorrhage. There are no findings of an acute ischemic infarction. Normal visualized paranasal sinuses. CT/Brain/Head without Contrast IMPRESSION: Normal unenhanced CT scan of the brain. Electronically Signed: Alfonso Dwyer DO at 16:24 EST Tel , Service support ,
--- NOTE | 2019-08-27 14:07 | ED.VIS.GEN ---
History of Present Illness Chief Complaint: Dizziness Informant: Patient Onset: Days Maximum Severity: Mild Narrative: Patient complains of a sense of dizzy spinning sensation and intermittent nausea since Tuesday she indicates Tuesday she was in a car she indicates he got very nauseated describes carsickness type symptoms she did not vomit then she has had carsickness before she indicates she is had intermittent episodes of spinning sensation dizziness since then for unspecified reasons. She had a child in June uncomplicated she had a tubal ligation 1 week ago without complications she denies abdominal pain fever cough chest pain no change in vision no numbness weakness paresthesias bowel and bladder habits normal, no HEENT symptoms no neurologic symptoms no risk factors, specifically she denies a history of stroke, brain tumor or aneurysm [place] PE DVT no family history States she does not feel the desire to eat or drink much Past Medical History - Allergies and Home Meds Allergies/Adverse Reactions: Allergies No Known Allergies Allergy (Verified 08/27/19 12:47) Primary Care Physician: Shai Lyn MD [Primary Care Provider] - Past Medical History: - - Intermittent dizziness recent tubal ligation Smoking Status: Never smoker Review of Systems General: Denies: Chills, Fever, Sweats Eyes: Denies: Visual changes - bilaterally, Diplopia ENT: Denies: Rhinorrhea, Sore throat Cardiovascular: Denies: Chest pain, Palpitations Respiratory: Denies: Dyspnea, Cough, Dyspnea on exertion Gastrointestinal: Denies: Abdominal pain, Nausea, Vomiting, Diarrhea, Melena, Hematochezia Genitourinary: Denies: Dysuria, Hematuria, Frequency Musculoskeletal: Denies: Back pain, Extremity Pain Skin: Denies: Rash, Wounds Neurological: Reports: - - Spinning dizziness sensation. Denies: Headache, Weakness, Numbness Physical Exam Vital Signs/Narrative: Vital Signs Temp Pulse Resp BP Pulse Ox 08/27/19 12:47 98.1 F 93 17 96/66 100 General: Well nourished, Well developed, No Acute Distress Head: Normocephalic, Atraumatic Eyes: Perrl, EOMI ENT: Moist mucous membranes, No rhinorrhea Neck: Supple, Nontender Cardiovascular: Regular rate, Regular rhythm, No murmurs Respiratory: No distress, CTA bilaterally, Chest nontender Abdomen: Soft, Nontender, Nondistended, Normal bowel sounds Back: Nontender, Normal Inspection Extremities: Nontender, No edema Skin: Normal color, No rash Neurological: Alert, Oriented x3, Cranial nerves II-XII grossly intact, Normal Strength, Normal Sensation, - - NIH is 0 her cranial nerves motor or sensory cerebellar normal her mental function is normal she has no difficulty with confusion moving her head does not cause a dizziness she is sitting up in the bed she is been walking around Psychological: Normal affect, Normal Mood Diagnostic/Tx/Re-eval - Medical Decision Making Exact etiology of all the above is unclear she apparently had dizzy spells before for unspecified reasons given her age and her complaints and recent surgery screening labs IV fluids head CT The patient's CBC is unremarkable her chemistry is pending as a CT the initial UA screen shows no nothing acute formal final UA pending Reevaluation states she feels better she is now feeling as if she can take liquids, I have asked the afternoon physicians to check the remainder of her pending labs or head CT and determine ultimate disposition Final impression dizzy spells etiology unclear disposition pending ED work-up ED Disposition - Plan for ED Patient: Referrals: Shai Lyn MD [Primary Care Provider] -
[2019-08-27] MEDS: 0.9% Normal Saline 1,000 ML 1000 ML IV (15:06)
[2019-08-27] MEDS: Ondansetron 4 MG/2 ML Vial IV ×2 (15:07→16:54)
[2019-08-27] MEDS: Morphine 4 MG/ML Syringe IV (15:07)
[2019-08-27 15:18] LABS: Red Blood Cells-Urine 0 SEEN /hpf (0-5)
[2019-08-27 15:22] LABS: Absolute Lymphocyte Count 1.89 X10^3/uL (0.83-4.51); Absolute Neutrophil Count 5.2 X10^3/uL (2.0-7.7); Basophil# 0.05 X10^3/uL; Basophil% 0.6 % (0-1); Eosinophils% 3.7 % (0-5); Hematocrit 44.3 % (37-47); Hemoglobin 14.4 g/dL (12.0-15.0); Lymphocyte # 1.89 X10^3/ul (4.0); Lymphocyte % 23.1 % (19-41); Mean Corp Hgb Conc 32.5 g/dL (32-36); Mean Corpuscular Hgb 28.8 pg (27.0-32.0); Mean Corpuscular Volume 88.6 fL (81-99); Mean Platelet Vol. 9.9 fl (6.2-12.0); Monocyte# 0.66 X10^3/uL; Monocyte% 8.1 % (0-10); NRBC Flagged by Analyzer 0 % (0-5); Neutrophil # 5.21 X10^3/uL (2.7-7.7); Neutrophil % 63.8 % (47-70); Platelet Count 256 K/mm3 (150-450); RBC Distribution Width CV 13.2 % (11.6-14.6); RBC Distribution Width SD 42.5 fl (35.1-43.9); White Blood Count 8.2 K/mm3 (4.4-11.0)
[2019-08-27 15:31] VITALS: BP 109/72; PULSE 75; RESP 16; O2SAT 100
[2019-08-27 15:33] LABS: Internal QC Validated? YES +Cl - CLEAR BKGD; Pregnancy, Serum, hCG Quali. NEGATIVE Negative
[2019-08-27 15:35] LABS: Color, Urine Yellow (Yellow); Glucose, Dipstick Normal (Normal); Ketone-Dipstick 5 mg/dl (Negative); Leukocyte Esterase-Dipstick 25 /ul (Negative); Nitrite-Dipstick Negative (Negative); Occult Blood-Urine Negative /ul (Negative); Protein-Dipstick Negative (Negative); Specific Gravity, Urine 1.015 (1.002-1.030); Urine Bilirubin Dipstick Negative (Negative); Urine Clarity Cloudy (Clear); Urine Urobilinogen Normal (Normal)
[2019-08-27 15:36] LABS: Internal QC Validated? YES +Cl - CLEAR BKGD; Pregnancy, Urine Negative Negative
[2019-08-27 15:41] LABS: ALB/GLOB Ratio 1.1 RATIO (0.9-2.4); AST(SGOT) 13 U/L (15-37); Alanine Aminotransfer ALT/SGPT 22 U/L (13-56); Alkaline Phosphatase 64 U/L (45-117); Anion Gap 5 (5-15); BUN 7 mg/dL (7-18); BUN/Creat Ratio 10.1 RATIO (10-20); Calcium,Total 8.8 mg/dL (8.5-10.1); Chloride 107 mmol/L (98-107); Creatinine, Serum 0.69 mg/dL (0.55-1.02); EST Glomerular Filtration Rate 108 mL/min (>60); Est Glom Filt Rate - Afr Amer 131 mL/min (>60); Estimated Creatinine Clearance 97.72 ml/min; Globulin 3.7 g/dL (2.2-4.2); Glucose 82 mg/dL (74-106); Lipase 100 U/L (73-393); Potassium 3.6 mmol/L (3.5-5.1); Protein, Total 7.7 g/dL (6.4-8.2); Sodium Level 142 mmol/L (136-145)
[2019-08-27 15:42] LABS: Bacteria 2+ /hpf (None Seen); Mucous, Urine 1+ /hpf (<or=2+)
[2019-08-27 15:43] LABS: Squamous Epithelial Cells - UA 25-50 SEEN /hpf (5-10); White Blood Cells 0-5 SEEN /hpf (0-5)
--- NOTE | 2019-08-27 16:45 | ED.DCSUM_ITS ---
- ER Visit Summary Date of Service: 08/27/19 Chief Complaint: [] History of Present Illness: The patient is a 28 F [] Physical Examination: [] Test Results: [] Emergency Department Course and Treatment: [] Treatment Plan: [] Disposition: [] Impression: [] This note was generated with [employer] dictation software. It may contain incorrect words, spelling, and punctuation that were not noted in review of the chart prior to signing ED Disposition - Plan for ED Patient: Instructions: DEHYDRATION (8y-Adult) Prescriptions: Ondansetron [Zofran Odt] 4 mg PO Q8H PRN PRN #10 tablet PRN Reason: Nausea Referrals: Shai Lyn MD [Primary Care Provider] - 1-2 Days if not improving
[2019-08-27] MEDS: Metoclopramide 10 MG/2 ML Vial IV (17:21)
[2019-08-27 18:11] VITALS: BP 110/60; PULSE 82; RESP 18; O2SAT 96
== END 2019-08-27 18:11 | disposition home or self-care (01) ==
LOC: ED 14:10
PROVIDERS: Emergency Provider Emergency Medicine; Family Provider Family Medicine; PCP Family Medicine
DX: R42 Dizziness and giddiness (principal)
CPT/HCPCS: 70450; 80053; 81001; 81025; 83690; 84703; 85025; 93005; 96361; 96374; 96375; 96376; 99284; J7030; A4216; J2405

== ENCOUNTER 2020-02-29 08:40 | Emergency (ER) | payer MEDICAID, SELFPAY ==
[2019-08-29 11:01] VITALS: BMI 30.4
[2020-02-29 08:41] VITALS: BP 114/61; PULSE 62; RESP 18; TEMP 36.6; O2SAT 99; BMI 27.4
--- NOTE | 2020-02-29 09:05 | ED.DCSUM_ITS ---
- ER Visit Summary Date of Service: 02/29/20 Chief Complaint: Dizziness History of Present Illness: The patient is a 29 F for depression which she stopped her antidepressant about 2 weeks ago because she thought it was contributing to her dizziness. Patient had her fourth child last June. Said she just recently started back to work at [employer] in February. Since that time she has had lightheadedness and dizziness. She denies any head trauma. No falls. No injuries. No headaches. Describes this as a lightheaded feeling. Not vertiginous. Not specifically associated with motion. She has some mild nausea. No vomiting. She had a CAT scan of her brain done in August of last year which was negative and one previously in 2014 was negative. Physical Examination: Well-appearing 29-year-old female no acute distress. Vital signs are stable and afebrile. H EENT exam normal. Her unreactive laser motions are intact. No facial droop. Moist weeks membranes. Normal speech. She asked me to check out her teeth her teeth are in very good condition. There is no signs of infection. Her molar on the top has a small hole in it but no cavity. There is no gum swelling. No tenderness. Neck nontender no lymphadenopathy. Lungs clear to auscultation. Heart regular rhythm no murmur. Abdomen soft nontender. Patient is moving all 4 extremities. Neurovascular intact. Neurologically he is awake alert with no focal motor or sensory deficits. 5-5 surgeon/president strength bilaterally. Dorsi plantarflexion intact. Fingertip to nose and [id number] all within normal limits. NIH score of 0. She got up and ambulated down the hallway to the bathroom without any difficulty. No ataxia. Otherwise exam completely unremarkable. Test Results: None. Emergency Department Course and Treatment: Patient has a normal exam. I did Hallpike maneuver and she did not have vertigo. I do not feel she needs any testing. She is young and healthy. She has had recent imaging of her brain which was negative. Treatment Plan: Zofran as needed for nausea. Work excuse today. Follow-up with her primary care physician Dr. Hitchcock. Disposition: Discharge Impression: Acute lightheadedness and dizziness of uncertain etiology. This note was generated with [employer] dictation software. It may contain incorrect words, spelling, and punctuation that were not noted in review of the chart prior to signing ED Disposition - Plan for ED Patient: Referrals: Shai Lyn MD [Primary Care Provider] -
--- NOTE | 2020-02-29 09:08 | ED.DEP ---
ED Disposition - Plan for ED Patient: Disposition: Home or Assisted Living Instructions: ED Dizziness UKO Prescriptions: Ondansetron [Zofran Odt] 4 mg PO Q8H PRN PRN #7 tab PRN Reason: Nausea Prescription Printed Referrals: Shai Hitchcock MD [[facility]] - Keep Stacy appointment Additional Instructions: Zofran as needed for nausea. Plenty of fluids and rest. Follow-up with your doctor for further evaluation. Your exam today was normal. I would suggest restarting your antidepressant because it is probably totally unrelated to your dizziness.
== END 2020-02-29 09:22 | disposition home or self-care (01) ==
LOC: ED 09:17
PROVIDERS: Emergency Provider Emergency Medicine; PCP Family Medicine
DX: R42 Dizziness and giddiness (principal)
CPT/HCPCS: 99282

== ENCOUNTER → 2021-01-12 16:16 | Outpatient (CLI) | payer MEDICAID, SELFPAY ==
[2021-01-12 15:35] VITALS: BMI 27.4
[2021-01-12 18:19] LABS: T4 Free Direct 0.93 ng/dL (0.76-1.46); Thyroid Stim Hormone (TSH) 5.53 uIU/mL (0.358-3.74)
[2021-01-18 15:44] LABS: HPV Reflexed? NOT INDICATED
== END ==
PROVIDERS: PCP Family Medicine; Referring Provider Obstetrics & Gynecology; Visit Provider Obstetrics & Gynecology
DX: E07.9 Disorder of thyroid, unspecified (principal); Z12.4 Encounter for screening for malignant neoplasm of cervix
CPT/HCPCS: 36415; 84439; 84443; 88175; G0145

== ENCOUNTER → 2021-01-12 | Outpatient (CLI) | payer MEDICAID, SELFPAY ==
[2021-01-12 15:35] VITALS: BMI 27.4
== END | disposition home or self-care (01) ==
LOC: LABSPEC 18:00
PROVIDERS: PCP Family Medicine; Visit Provider Obstetrics & Gynecology
DX: Z12.4 Encounter for screening for malignant neoplasm of cervix (principal)
CPT/HCPCS: 88175; G0145

== ENCOUNTER 2021-03-26 10:41 | Emergency (ER) | payer MEDICAID, SELFPAY ==
[2021-01-12 15:35] VITALS: BMI 27.4
[2021-03-26 10:41] VITALS: BP 105/64; PULSE 72; RESP 18; TEMP 36.6; O2SAT 97; BMI 25.8
[2021-03-26] MEDS: DiphenhydrAMINE 50 MG/ML Syringe 25 MG IV (11:40)
[2021-03-26] MEDS: Metoclopramide 10 MG/2 ML Vial IV (11:40)
[2021-03-26] MEDS: 0.9% Normal Saline 1,000 ML 999 ML IV (11:40)
[2021-03-26 13:11] VITALS: RESP 16
--- NOTE | 2021-03-26 13:54 | EX.ED.VIS.HA ---
HPI History of Present Illness Chief Complaint: Headache Informant: patient Onset/Context/Timing Onset: Days (4) Context: Sudden Timing: Continuous Quality -Headache: Positive for Similar Prior Headaches Location: Bilateral parietal areas and occipital areas Worsened by: Nothing Relieved by: Nothing Associated Symptoms/Injury Associated Symptoms: Positive for Nausea; Negative for Fever, Vomiting, Sore Throat, Sinus Pressure, Numbness, Tingling, Preceding Aura, Visual Changes, Blurred Vision, Photophobia and Visual Loss Injury - MEYERS: Negative for Direct Trauma Narrative Narrative: Patient presents with headache that has been constant for the past 4 days. Patient states this feels similar to prior migraine headaches. Patient states the pain is over bilateral parietal areas and over the occiput. Patient states pain radiates into her neck. Patient admits to nausea but denies any vomiting. Patient states nothing makes her pain worse and nothing makes it better. Patient denies any photophobia. Patient denies any visual changes. PFSH PFSH Medical History Depression Migraine Home Medications amitriptyline 10 mg tablet 30 mg PO QHS 01/12/21 [History Last Taken Unknown] fluoxetine 20 mg capsule 20 mg PO DAILY #30 cap 01/12/21 [Rx Last Taken Unknown] levothyroxine 50 mcg tablet 50 mcg PO DAILY #30 tab 01/12/21 [Rx Last Taken Unknown] ondansetron HCl 4 mg tablet 4 mg PO Q8H #60 tab 01/12/21 [Rx Last Taken Unknown] Allergy/AdvReac Type Severity Reaction Status Date / Time No Known Allergies Allergy Verified 02/29/20 08:43 Surgical History H/O tubal ligation Social History Smoking Status: Never smoker alcohol intake: never substance use type: does not use caffeine: Yes what type of physical activity do you participate in: none seatbelt use: always additional social history: Juan Manuel ROJAS ED Constitutional Constitutional ED: Denies chills or fever(s) Eyes Eyes: Denies blurry vision or change in vision ENT ENT ED: Denies rhinorrhea or sore throat Cardiovascular Cardiovascular: Denies chest pain or palpitations Respiratory/Chest Respiratory/Chest: Denies cough or dyspnea Gastrointestinal Gastrointestinal: Reports nausea; Denies vomiting Genitourinary Genitourinary ED: Denies dysuria or hematuria Musculoskeletal Musculoskeletal: Reports neck pain; Denies back pain Integumentary Denies abscess or rash Neurologic Neurologic: Reports headache(s); Denies weakness Allergic/Immunologic Allergic/Immunologic ED: Denies mouth swelling or urticaria EXAM Physical Exam Const Vital Signs: 03/26/21 10:41 03/26/21 13:11 Temperature 97.8 F Temperature Source Temporal Pulse Rate 72 Respiratory Rate 18 16 Blood Pressure 105/64 Blood Pressure Mean 77 Pulse Ox 97 Oxygen Delivery Method Room Air Positive well nourished and well developed General Appearance ED: well developed HEENT Reports moist mucous membranes Neck supple and no JVD Resp normal respiratory effort and clear to auscultation bilaterally Cardio regular rate, regular rhythm and no murmurs GI normal to inspection, nondistended, normoactive bowel sounds and non-tender Palpation: soft Extremity normal to inspection General Extremety ED: Negative for edema or tenderness General Extremity: Negative for edema Neuro oriented x3, CN's II-XII intact bilaterally and no sensory deficits noted Sensorium / Orientation: alert Motor Exam: strength 5/5 throughout Psych mental status grossly normal Skin no rashes or lesions noted MDM MDM MDM Narrative Medical decision making narrative: Patient was given IV fluids, Reglan, and Benadryl. Patient is feeling better on reevaluation. Patient was to go home. Patient was instructed to rest in a dark quiet room. Patient was instructed to follow-up with her primary care physician in 5 to 7 days. Patient understood and was agreeable with the plan. All questions were answered. Discharge Plan Triage Chief Complaint: Headache ED Provider: Bright Adams Dx/Rx/DC Orders Clinical Impression: Headache, migraine Instructions: ED, Migraine (Classical) Prescriptions: No Action amitriptyline 10 mg tablet 30 mg PO QHS RF: 0 levothyroxine 50 mcg tablet 50 mcg PO DAILY Qty: 30 RF: 12 ondansetron HCl [Zofran] 4 mg tablet 4 mg PO Q8H Qty: 60 RF: 12 fluoxetine [Prozac] 20 mg capsule 20 mg PO DAILY Qty: 30 RF: 12 Primary Care Provider: Shai Hitchcock Referrals: Shai Hitchcock MD [Primary Care Provider] - 3-5 Days Disposition Disposition: Home, Self Care
[2021-03-26 14:13] VITALS: BP 111/76; PULSE 69; RESP 18; O2SAT 99
== END 2021-03-26 14:14 | disposition home or self-care (01) ==
PROVIDERS: Emergency Provider Emergency Medicine; PCP Family Medicine
DX: G43.909 Migraine, unspecified, not intractable, without status migrainosus (principal); F32.9 Major depressive disorder, single episode, unspecified; Z79.899 Other long term (current) drug therapy
CPT/HCPCS: 96361; 96374; 96375; 99284; J7030; A4216

== ENCOUNTER → 2021-07-16 | Outpatient (CLI) | payer MEDICAID, SELFPAY | END | disposition home or self-care (01) | LOC: LABSPEC 15:51 | PROVIDERS: PCP Family Medicine; Visit Provider Obstetrics & Gynecology | DX: N89.8 Other specified noninflammatory disorders of vagina (principal) | CPT/HCPCS: 87070; 87205 ==

== ENCOUNTER 2021-08-30 14:42 | Emergency (ER) | payer MEDICAID, SELFPAY ==
[2021-08-30 14:42] VITALS: BP 115/78; PULSE 85; RESP 16; TEMP 36.6; O2SAT 100; BMI 28.9
--- NOTE | 2021-08-30 15:05 | EX.ED.DYSGE1 ---
HPI History of Present Illness Chief Complaint: Nausea/Vomiting Informant: patient Narrative Narrative: Patient states [id number] female presenting to the emergency department for evaluation of nausea. on Tuesday she got carsickness She had emesis and her nausea began and has been persistent since. Tuesday and on . She has had emesis on Tuesday and on . She has been able to tolerate fluids and some solid foods states when she does eat she feels full no change in bowel movements. She denies any headache epigastrium left upper quadrant. She denies any pain or neurologic symptoms. She tried some leftover Zofran which did not help her. No recent URIs. [facility] Medical History (Updated 08/30/21 @ 16:[address] Emmanuel Clifton DO) Depression Hypothyroidism Migraine Home Medications levothyroxine 50 mcg tablet 50 mcg PO DAILY #30 tab 01/12/21 [Rx Last Taken Unknown] promethazine 25 mg PO Q6H PRN PRN #15 tablet 08/30/21 [Rx Last Taken Unknown] scopolamine base 1 patch TRANSDERMAL Q3D PRN #2 ea 08/30/21 [Rx Last Taken Unknown] Allergy/AdvReac Type Severity Reaction Status Date / Time No Known Allergies Allergy Verified 08/30/21 14:44 Surgical History H/O tubal ligation Social History Smoking Status: Never smoker alcohol intake: never substance use type: does not use caffeine: Yes what type of physical activity do you participate in: none seatbelt use: always additional social history: Juan Manuel ROJAS ED Constitutional Constitutional ED: Denies chills or weight loss Eyes Eyes: Denies change in vision or diplopia ENT ENT ED: Denies ear pain, rhinorrhea or sore throat Cardiovascular Cardiovascular: Denies chest pain, orthopnea, palpitations or racing heartbeat Respiratory/Chest Respiratory/Chest: Denies cough, dyspnea or orthopnea Gastrointestinal Gastrointestinal: Reports nausea and vomiting; Denies abdominal pain or diarrhea Genitourinary Genitourinary ED: Denies dysuria, hematuria or urinary frequency Musculoskeletal Musculoskeletal: Denies arthralgias or myalgias Integumentary Denies abscess or rash Neurologic Neurologic: Denies headache(s) or weakness Psychiatric Psychiatric: Denies anxiety, depression, suicidal ideation or suicidal thoughts Endocrine Endocrinology: Denies polydipsia, polyphagia or polyuria Allergic/Immunologic Allergic/Immunologic ED: Denies mouth swelling, tongue swelling or urticaria EXAM Physical Exam Const Vital Signs: 08/30/21 14:42 Temperature 97.8 F Temperature Source Temporal Pulse Rate 85 Respiratory Rate 16 Blood Pressure 115/78 Blood Pressure Mean 90 Pulse Ox 100 Oxygen Delivery Method Room Air Positive well nourished and well developed General Appearance ED: well developed HEENT Reports normocephalic, head/scalp atraumatic, TM's clear and moist mucous membranes Tympanic Membrane ED: Yes TM's clear Eyes PERRL and EOMs intact bilaterally Neck no lymphadenopathy, supple and no JVD Resp normal respiratory effort and clear to auscultation bilaterally Cardio regular rate, regular rhythm and no murmurs GI normal to inspection, nondistended, normoactive bowel sounds and non-tender Palpation: soft Back/Spine no CVA tenderness and normal ROM Extremity normal to inspection General Extremety ED: Negative for edema General Extremity: Negative for edema Neuro oriented x3 and CN's II-XII intact bilaterally Sensorium / Orientation: alert Motor Exam: strength 5/5 throughout Psych mental status grossly normal Mood & Affect: Negative for depressed or tearful Skin no rashes or lesions noted and no wounds MDM MDM MDM Narrative Medical decision making narrative: Basic labs are negative test is negative. Patient received a dose of Phenergan. Do not see a clear cause for her isolated nausea. I will write for Phenergan as well as a scopolamine patch for her to try. If she does not improve in the next couple days would recommend following up with primary care return if worsening Lab Data Attestation: I reviewed the patient's lab results. Labs: Laboratory Results - last 24 hr 08/30/21 08/30/21 08/30/21 15:35 15:35 15:35 WBC 8.3 RBC 4.60 Hgb 14.4 Hct 41.7 MCV 90.7 MCH 31.3 MCHC 34.5 RDW Std Deviation 39.1 RDW Coeff of Anna 11.8 Plt Count 290 MPV 9.8 Immature Gran % (Auto) 0.400 Neut % (Auto) 60.4 Lymph % (Auto) 25.6 Hale % (Auto) 9.1 Eos % (Auto) 3.5 Baso % (Auto) 1.0 Absolute Neuts (auto) 5.0 Absolute Lymphs (auto) 2.13 Nucleated RBC % 0 Sodium 141 Potassium 3.7 Chloride 109 H Carbon Dioxide 28.0 Anion Gap 4 L BUN 10 Creatinine 0.79 Estim Creat Clear Calc 83.85 Est GFR (MDRD) Af Amer 111 Est GFR (MDRD) Non-Af 92 BUN/Creatinine Ratio 12.7 Glucose 85 Calcium 8.9 Total Bilirubin 0.30 AST 10 L ALT 17 Alkaline Phosphatase 49 Total Protein 7.9 Albumin 3.8 Globulin 4.1 Albumin/Globulin Ratio 0.9 Lipase 119 Serum , Qual NEGATIVE Discharge Plan Triage Chief Complaint: Nausea/Vomiting ED Provider: Emmanuel Clifton Dx/Rx/DC Orders Clinical Impression: Nausea Instructions: Nausea Vomit Control Prescriptions: New promethazine [promethazine] 25 MG tablet 25 mg PO Q6H PRN PRN (Reason: Nausea) Qty: 15 RF: 0 scopolamine base 1 mg over 3 days patch 3 day 1 patch transdermal Q3D PRN (Reason: nausea and vomiting) Qty: 2 RF: 0 No Action levothyroxine 50 mcg tablet 50 mcg PO DAILY Qty: 30 RF: 12 Primary Care Provider: Shia Hitchcock Referrals: Shai Hitchcock MD [Primary Care Provider] - 3-5 Days if not improving Disposition Disposition: Home, Self Care
[2021-08-30] MEDS: proMETHazine 25 MG Tablet PO (15:36)
[2021-08-30 15:55] LABS: Absolute Lymphocyte Count 2.13 X10^3/uL (0.83-4.51); Basophil# 0.08 X10^3/uL; Eosinophil# 0.29 X10^3/uL; Eosinophils% 3.5 % (0-5); Hematocrit 41.7 % (37-47); Hemoglobin 14.4 g/dL (12.0-15.0); Lymphocyte # 2.13 X10^3/ul (0.83-4.51); Lymphocyte % 25.6 % (19-41); Mean Corp Hgb Conc 34.5 g/dL (32-36); Mean Corpuscular Hgb 31.3 pg (27.0-32.0); Mean Corpuscular Volume 90.7 fL (81-99); Mean Platelet Vol. 9.8 fl (6.2-12.0); Monocyte# 0.76 X10^3/uL; Monocyte% 9.1 % (0-10); NRBC Flagged by Analyzer 0 % (0-5); Neutrophil # 5.02 X10^3/uL (2.7-7.7); Neutrophil % 60.4 % (47-70); Platelet Count 290 K/mm3 (150-450); RBC Distribution Width CV 11.8 % (11.6-14.6); RBC Distribution Width SD 39.1 fl (35.1-43.9); White Blood Count 8.3 K/mm3 (4.4-11.0)
[2021-08-30 15:58] LABS: Internal QC Validated? YES +Cl - CLEAR BKGD; Pregnancy, Serum, hCG Quali. NEGATIVE Negative
[2021-08-30 16:03] LABS: ALB/GLOB Ratio 0.9 RATIO (0.9-2.4); AST(SGOT) 10 U/L (15-37); Alanine Aminotransfer ALT/SGPT 17 U/L (13-56); Albumin, Serum 3.8 g/dL (3.2-5.0); Alkaline Phosphatase 49 U/L (45-117); Anion Gap 4 (5-15); BUN 10 mg/dL (7-18); BUN/Creat Ratio 12.7 RATIO (10-20); Calcium,Total 8.9 mg/dL (8.5-10.1); Chloride 109 mmol/L (98-107); Creatinine, Serum 0.79 mg/dL (0.55-1.02); EST Glomerular Filtration Rate 92 mL/min (>60); Est Glom Filt Rate - Afr Amer 111 mL/min (>60); Estimated Creatinine Clearance 83.85 ml/min; Globulin 4.1 g/dL (2.2-4.2); Glucose 85 mg/dL (74-106); Lipase 119 U/L (73-393); Potassium 3.7 mmol/L (3.5-5.1); Protein, Total 7.9 g/dL (6.4-8.2); Sodium Level 141 mmol/L (136-145)
[2021-08-30 16:20] VITALS: BP 109/67; PULSE 79; RESP 16
== END 2021-08-30 16:23 | disposition home or self-care (01) ==
PROVIDERS: Emergency Provider Emergency Medicine; PCP Family Medicine
DX: R11.2 Nausea with vomiting, unspecified (principal); E03.9 Hypothyroidism, unspecified; Z79.899 Other long term (current) drug therapy
CPT/HCPCS: 80053; 83690; 84703; 85025; 99284; A4216

== ENCOUNTER 2021-10-12 17:20 | Emergency (ER) | payer OTHER, MEDICAID, SELFPAY ==
[2021-10-12 17:23] VITALS: BP 103/70; PULSE 77; RESP 17; TEMP 35.8; O2SAT 100; BMI 29.3
--- NOTE | 2021-10-12 18:36 | RAD_ITS ---
STUDY: X-RAY - RIGHT HAND REASON FOR EXAM: Female, 31 years old.PUNCTURE WOUND TO LEFT 2ND FINGER. index finger TECHNIQUE: 3 view(s) of the hand. COMPARISON: None. FINDINGS: Normal radiocarpal articulation. Normal distal radioulnar joint. Normal visualized carpal bones. Normal carpal articulations Normal carpometacarpal articulation of the thumb. Normal second through fifth carpometacarpal joints. Normal metacarpi. No visualized fracture. Normal metacarpophalangeal joint of the thumb. Normal interphalangeal joint of the thumb. Normal proximal and distal phalanges of the thumb. Normal metacarpophalangeal joints of the second through fifth fingers. Normal proximal and distal interphalangeal joints of the second through fifth fingers. Normal phalanges of the second through fifth fingers. Mild to moderate soft tissue swelling is present around the second digit. RAD/Hand Min 3 Views IMPRESSION: 1. Mild to moderate soft tissue swelling is present around the second digit. Electronically Signed: Sonido Mohamud MD at 19:43 EST ,
[2021-10-12] MEDS: Naproxen 500 MG Tablet PO (18:42)
--- NOTE | 2021-10-12 19:53 | EX.ED.UPPERE ---
HPI History of Present Illness Chief Complaint: Wound Narrative Narrative: Patient states she was at work today and as she was working a metal hook accidentally poked into the lateral aspect of her right index finger and she states it is notably hurt. She had swelling over the course the day continue to work since 930 this morning did not have any numbness or tingling but states now that her finger swollen she is having trouble moving it. She does not have any bleeding. She is not concerned there is a foreign body. Tetanus immunization is up-to-date. She was sent in for work for evaluation [facility] Medical History Depression Hypothyroidism Migraine Home Medications levothyroxine 50 mcg tablet 50 mcg PO DAILY #30 tab 01/12/21 [Rx Last Taken Unknown] promethazine 25 mg PO Q6H PRN PRN #15 tablet 08/30/21 [Rx Last Taken Unknown] propranolol 10 mg PO DAILY 10/12/21 [History Last Taken Unknown] sertraline 50 mg PO DAILY 10/12/21 [History Last Taken Unknown] sumatriptan succinate 100 mg PO PRN PRN 10/12/21 [History Last Taken Unknown] Allergy/AdvReac Type Severity Reaction Status Date / Time No Known Allergies Allergy Verified 10/12/21 17:22 Surgical History H/O tubal ligation Social History Smoking Status: Never smoker alcohol intake: never substance use type: does not use caffeine: Yes what type of physical activity do you participate in: none seatbelt use: always additional social history: Juan Manuel ROJAS ED Constitutional Constitutional ED: Denies chills or fever(s) Eyes Eyes: Denies blurry vision or change in vision ENT ENT ED: Denies rhinorrhea or sore throat Cardiovascular Cardiovascular: Denies chest pain or palpitations Respiratory/Chest Respiratory/Chest: Denies cough or dyspnea Gastrointestinal Gastrointestinal: Denies abdominal pain, nausea or vomiting Genitourinary Genitourinary ED: Denies dysuria or hematuria Musculoskeletal Musculoskeletal: Denies myalgias or neck pain Integumentary Reports other Details: Puncture wound right index ; Denies abscess or rash Neurologic Neurologic: Denies headache(s), paresthesias or weakness Psychiatric Psychiatric: Denies anxiety or depression EXAM Physical Exam Const Vital Signs: 10/12/21 17:23 Temperature 96.5 F L Temperature Source Temporal Pulse Rate 77 Respiratory Rate 17 Blood Pressure 103/70 Blood Pressure Mean 81 Pulse Ox 100 Oxygen Delivery Method Room Air Positive well nourished General Appearance ED: NAD HEENT normocephalic and atraumatic Eyes PERRL and EOMs intact bilaterally Resp normal respiratory effort and clear to auscultation bilaterally Cardio regular rate and regular rhythm Neuro oriented x3 Sensorium / Orientation: alert Skin Skin Narrative: Punctate puncture wound on the lateral aspect of the right index finger between the PIP and DIP. No bony tenderness. MDM MDM MDM Narrative Medical decision making narrative: I did obtain x-ray of the right hand and patient received Naprosyn for pain. She is not want anything more for this pain. X-ray of the right hand on my interpretation shows no acute fracture or subluxation. There is some soft tissue swelling of the index finger. She states that she will not require any work restrictions for this. She states she can use her hand well. Patient will be discharged home in stable condition. Impression: 1. Puncture wound right index finger Radiography Diagnostic Testing: Clinical Impression(s) from Imaging Studies Hand X-Ray 10/12/21 18:36 IMPRESSION: 1. Mild to moderate soft tissue swelling is present around the second digit. Electronically Signed: Sonido Mohamud MD at 19:43 EST Reading Location ID and State: [address] [place] [address] , Service support , Discharge Plan Triage Chief Complaint: Wound ED Provider: Geovanny Zepeda Dx/Rx/DC Orders Instructions: ED Puncture Wound (General) Prescriptions: No Action levothyroxine 50 mcg tablet 50 mcg PO DAILY Qty: 30 RF: 12 promethazine [promethazine] 25 MG tablet 25 mg PO Q6H PRN PRN (Reason: Nausea) Qty: 15 RF: 0 sumatriptan succinate 100 mg tablet 100 mg PO PRN PRN (Reason: migraines) RF: 0 propranolol 10 mg tablet 10 mg PO DAILY RF: 0 sertraline 50 mg tablet 50 mg PO DAILY RF: 0 Primary Care Provider: Shai Hitchcock Referrals: Shai Hitchcock MD [Primary Care Provider] - [facility] [NON-STAFF] - 3-5 Days Disposition Disposition: Home, Self Care Discharge Date/Time: 10/12/21 19:59
[2021-10-12 19:59] VITALS: BP 110/67; PULSE 80; RESP 15; O2SAT 98
== END 2021-10-12 19:59 | disposition home or self-care (01) ==
PROVIDERS: Emergency Provider Student in an Organized Health Care Education/Training Program; PCP Family Medicine; Visit Provider Student in an Organized Health Care Education/Training Program
DX: S61.230A Puncture wound without foreign body of right index finger without damage to nail, initial encounter (principal); W26.8XXA Contact with other sharp object(s), not elsewhere classified, initial encounter; Y93.89 Activity, other specified; Y99.0 Civilian activity done for income or pay; Y92.89 Other specified places as the place of occurrence of the external cause; E03.9 Hypothyroidism, unspecified; Z79.899 Other long term (current) drug therapy; F32.A Depression, unspecified; Z79.890 Hormone replacement therapy; G43.909 Migraine, unspecified, not intractable, without status migrainosus
CPT/HCPCS: 73130; 99282

== ENCOUNTER → 2022-01-14 | Outpatient (CLI) | payer MEDICAID, SELFPAY ==
[2022-01-20 20:22] LABS: HPV Reflexed? NOT INDICATED
== END | disposition home or self-care (01) ==
LOC: LABSPEC 16:54
PROVIDERS: PCP Family Medicine; Visit Provider Obstetrics & Gynecology
DX: Z12.4 Encounter for screening for malignant neoplasm of cervix (principal)
CPT/HCPCS: 88175; G0145

== ENCOUNTER 2022-02-24 17:44 | Emergency (ER) | payer MEDICAID, SELFPAY ==
[2022-02-24 17:49] VITALS: BP 103/74; PULSE 97; RESP 16; TEMP 36.9; O2SAT 98; BMI 28.5
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
--- NOTE | 2022-02-24 19:18 | RAD_ITS ---
STUDY: XR Wrist Min 3 Views REASON FOR EXAM: Female, 31 years old. pain TECHNIQUE: XR Wrist Min 3 Views LEFT COMPARISON: None FINDINGS: There are no acute findings of the visualized distal radius and ulna. There are no acute findings of the radiocarpal articulation. Normal distal radioulnar articulation. Normal carpal bones. Normal carpal articulations. There are no acute findings of the carpometacarpal articulation of the thumb. Normal second through fifth carpometacarpal articulations. There are no acute findings of the visualized metacarpal bones. The soft tissue structures are unremarkable. RAD/Wrist min 3 Views IMPRESSION: There are no acute findings of the wrist. Electronically Signed: Kyle Guardado MD at 20:07 EDT ,
[2022-02-24] MEDS: Ibuprofen 600 MG Tablet PO (19:27)
[2022-02-24 19:29] VITALS: RESP 18
--- NOTE | 2022-02-24 19:40 | RAD_ITS ---
STUDY: X-RAY XR Forearm 2 Views REASON FOR EXAM: Female, 31 years old. PAIN TECHNIQUE: XR Forearm 2 Views LEFT COMPARISON: None. FINDINGS: There is no demonstrated soft tissue swelling. Normal visualized radius. Normal visualized ulna. RAD/Forearm 2 Views IMPRESSION: Normal x-ray examination of the radius and ulna. Electronically Signed: Kyle Guardado MD at 20:07 EDT ,
== END 2022-02-24 20:29 | disposition home or self-care (01) ==
PROVIDERS: Emergency Provider Student in an Organized Health Care Education/Training Program; PCP Family Medicine; Visit Provider Student in an Organized Health Care Education/Training Program
DX: S66.912A Strain of unspecified muscle, fascia and tendon at wrist and hand level, left hand, initial encounter (principal); S56.912A Strain of unspecified muscles, fascia and tendons at forearm level, left arm, initial encounter; S50.812A Abrasion of left forearm, initial encounter; S50.811A Abrasion of right forearm, initial encounter; V89.2XXA Person injured in unspecified motor-vehicle accident, traffic, initial encounter; W22.10XA Striking against or struck by unspecified automobile airbag, initial encounter; E03.9 Hypothyroidism, unspecified; F32.A Depression, unspecified; Z79.890 Hormone replacement therapy; Z79.899 Other long term (current) drug therapy
CPT/HCPCS: 73090; 73110; 99284

== ENCOUNTER → 2023-05-11 | Outpatient (CLI) | payer OTHER, MEDICAID, SELFPAY ==
[2023-05-11 10:26] LABS: Hematocrit 44.4 % (37-47); Hemoglobin 14.9 g/dL (12.0-15.0); Mean Corp Hgb Conc 33.6 g/dL (32-36); Mean Corpuscular Hgb 31.8 pg (27.0-32.0); Mean Corpuscular Volume 94.9 fL (81-99); Mean Platelet Vol. 10.4 fl (6.2-12.0); Platelet Count 276 K/mm3 (150-450); RBC Distribution Width CV 11.9 % (11.6-14.6); RBC Distribution Width SD 41.1 fl (35.1-43.9); Red Blood Count 4.68 M/mm3 (4.2-5.4); White Blood Count 5.6 K/mm3 (4.4-11.0)
[2023-05-11 10:55] LABS: Vitamin B12 329 pg/mL (211-911)
[2023-05-11 11:12] LABS: ALB/GLOB Ratio 1.1 RATIO (0.9-2.4); AST(SGOT) 13 U/L (15-37); Alanine Aminotransfer ALT/SGPT 20 U/L (13-56); Albumin, Serum 4.2 g/dL (3.2-5.0); Alkaline Phosphatase 50 U/L (45-117); Anion Gap 4 (5-15); BUN 8 mg/dL (7-18); BUN/Creat Ratio 10.4 RATIO (10-20); Calcium,Total 8.6 mg/dL (8.5-10.1); Chloride 112 mmol/L (98-107); Creatinine, Serum 0.77 mg/dL (0.55-1.02); EST Glomerular Filtration Rate 93 mL/min (>60); Est Glom Filt Rate - Afr Amer 113 mL/min (>60); Globulin 3.7 g/dL (2.2-4.2); Glucose 86 mg/dL (74-106); Potassium 3.8 mmol/L (3.5-5.1); Protein, Total 7.9 g/dL (6.4-8.2); Sodium Level 141 mmol/L (136-145); T4 Free Direct 1.01 ng/dL (0.76-1.46); Thyroid Stim Hormone (TSH) 1.89 uIU/mL (0.358-3.74)
== END | disposition home or self-care (01) ==
PROVIDERS: PCP Family Medicine; Referring Provider Psychiatry & Neurology Neurology; Visit Provider Psychiatry & Neurology Neurology
DX: G43.009 Migraine without aura, not intractable, without status migrainosus (principal); E03.9 Hypothyroidism, unspecified
CPT/HCPCS: 36415; 80053; 82607; 84439; 84443; 85027

== ENCOUNTER 2023-05-31 08:55 | Emergency (ER) | payer OTHER, MEDICAID, SELFPAY ==
[2023-05-31 08:56] VITALS: BP 95/66; PULSE 77; RESP 14; TEMP 36.6; O2SAT 100; BMI 27.0
--- NOTE | 2023-05-31 09:15 | CT_ITS ---
STUDY: CT BRAIN WITHOUT CONTRAST REASON FOR EXAM: Female, 32 years old. One month history of migraines. RADIATION DOSAGE (If Supplied By Facility): CTDIvol = ( 44.99 ) mGy, DLP = ( 728.62 ) mGycm TECHNIQUE: Transaxial CT imaging of the brain was performed without administration of intravenous contrast material. Individualized dose optimization techniques were used for this CT. COMPARISON: Comparison is made with prior study dated August 27, 2019. FINDINGS: Normal soft tissue structures. Normal calvarium. Normal size ventricles and extra-axial spaces for the patient''s age. Normal white matter tracts of the cerebral hemispheres. Normal basal ganglia and thalami. Normal brainstem. Normal cerebellum. There is no intracranial hemorrhage. There are no findings of an acute ischemic infarction. Normal visualized paranasal sinuses. CT/Brain/Head without Contrast IMPRESSION: Normal unenhanced CT scan of the brain. Electronically Signed: Willie Thomas MD at 9:55 EDT ,
--- NOTE | 2023-05-31 09:26 | EDS_ITS ---
HPI History of Present Illness Chief Complaint: Headache Informant: patient Onset/Context/Timing Onset: Month(s) (1) Context: Sudden Timing: Continuous Quality -Headache: Positive for Similar Prior Headaches and Sharp Location: Right side of head Worsened by: Nothing Relieved by: Nothing Associated Symptoms/Injury Associated Symptoms: Positive for Nausea; Negative for Fever, Vomiting, Sore Throat, Sinus Pressure, Numbness, Tingling, Preceding Aura, Visual Changes, Blurred Vision, Photophobia or Visual Loss Injury - MEYERS: Negative for Direct Trauma Narrative Narrative: Patient presents with a migraine headache that has been constant for the past month. Patient states it feels similar to prior migraine headaches. Patient states it began rather suddenly. Patient describes her pain as sharp. Patient states it is over the right side of her head and radiates into her neck and jaw. Patient states nothing makes it better nothing makes it worse. Patient admits to nausea but denies any vomiting. Patient denies any sore throat or sinus pressure. Patient denies any visual changes, scotoma, or photophobia. Patient denies any trauma or injury. [facility] Medical History Depression Hypothyroidism Migraine Home Medications levothyroxine 50 mcg tablet 50 mcg PO DAILY #30 tabs 01/12/21 [Rx Last Taken Unknown] promethazine 25 mg tablet 25 mg PO Q6H PRN PRN Nausea #15 TABLETS 08/30/21 [Rx Last Taken Unknown] sertraline 50 mg tablet 50 mg PO DAILY 10/12/21 [History Last Taken Unknown] atogepant 60 mg tablet (Qulipta) 60 mg PO DAILY #30 tabs 04/18/23 [Rx Last Taken Unknown] ondansetron 4 mg disintegrating tablet 4 mg PO Q8H PRN nausea and vomiting #90 tabs 04/18/23 [Rx Last Taken Unknown] rizatriptan 10 mg tablet 10 mg PO .COMPLEX migraine headache #9 tabs 04/18/23 [Rx Last Taken Unknown] topiramate 50 mg tablet 50 mg PO BID #60 tabs 04/18/23 [Rx Last Taken Unknown] Allergy/AdvReac Type Severity Reaction Status Date / Time No Known Allergies Allergy Verified 05/31/23 08:56 Surgical History H/O tubal ligation Social History Smoking Status: Never smoker alcohol intake: never substance use type: does not use caffeine: Yes what type of physical activity do you participate in: none seatbelt use: always additional social history: Naidazeeshan ROJAS ROS ED Constitutional Constitutional ED: Denies chills or fever(s) Eyes Eyes: Denies blurry vision or change in vision ENT ENT ED: Denies rhinorrhea or sore throat Cardiovascular Cardiovascular: Denies chest pain or palpitations Respiratory/Chest Respiratory/Chest: Denies cough or dyspnea Gastrointestinal Gastrointestinal: Reports nausea; Denies vomiting Genitourinary Genitourinary ED: Denies dysuria or hematuria Musculoskeletal Musculoskeletal: Reports neck pain; Denies back pain Integumentary Denies abscess or rash Neurologic Neurologic: Reports headache(s); Denies weakness Allergic/Immunologic Allergic/Immunologic ED: Denies mouth swelling or urticaria EXAM Physical Exam Const Vital Signs: 05/31/23 08:56 Temperature 98 F Temperature Source Temporal Pulse Rate 77 Respiratory Rate 14 Blood Pressure 95/66 Blood Pressure Mean 75 Pulse Ox 100 Oxygen Delivery Method Room Air Positive well nourished and well developed General Appearance ED: well developed and NAD HEENT Reports normocephalic and moist mucous membranes atraumatic; Negative for temporal artery tenderness or vesicular rash Eyes PERRL and EOMs intact bilaterally Neck supple, no meningeal signs and no JVD Resp normal respiratory effort and clear to auscultation bilaterally Cardio regular rate and regular rhythm GI non-tender and non-distended Palpation: soft Extremity normal to inspection and full ROM Neuro oriented x3, CN's II-XII intact bilaterally and no sensory deficits noted [place] Coma Scale: document GCS findings Spontaneous Obeys Commands Oriented 15 Sensorium / Orientation: awake and alert Speech: speech normal Motor Exam: strength 5/5 throughout Psych mental status grossly normal MDM MDM MDM Narrative Medical decision making narrative: Differential diagnosis includes migraine headache, tension headache, and intracranial bleeding. CT scan of the brain will be obtained to assess for intracranial bleeding. Urine hCG will be obtained to assess for . Lab Data Attestation: I reviewed the patient's lab results. Lab results narrative: Urine hCG was reviewed and was negative. Labs: Laboratory Results - last 24 hr 05/31/23 09:28 Urine Test Negative Radiography Diagnostic Testing: Clinical Impression(s) from Imaging Studies Brain CT 05/31/23 09:15 IMPRESSION: Normal unenhanced CT scan of the brain. Electronically Signed: Willie Thomas MD at 9:55 EDT , CT scan of the brain was obtained. There is no acute intracranial abnormality. This was interpreted by the radiologist and was also independently reviewed by m vipin. Treatment and Re-Evaluation Narrative: Patient was given IV fluids, Reglan, and Benadryl. Patient was feeling better o n reevaluation but her headache was still present. Patient was given a dose of Toradol and Imitrex. Patient was instructed to drink plenty of fluids. Patient was instructed to rest in a dark quiet room. Patient was instructed to follow- up with her primary care physician in 5 to 7 days. Patient was instructed return if worse in any way. Patient understood and was agreeable with the plan. All questions were answered. Discharge Plan Triage Chief Complaint: Headache ED Provider: Bright Adams Dx/Rx/DC Orders Clinical Impression: Migraine headache without aura Instructions: ED, Migraine (Classical) Prescriptions: No Action levothyroxine 50 mcg tablet 50 mcg PO DAILY Qty: 30 12RF rizatriptan 10 mg tablet 10 mg PO .COMPLEX Qty: 9 5RF Rx Instructions: Take 1 tablet orally every two hours as needed for headache up to three tablets per day ondansetron 4 mg tablet,disintegrating 4 mg PO Q8H PRN (Reason: nausea and vomiting) Qty: 90 5RF topiramate 50 mg tablet 50 mg PO BID Qty: 60 5RF Rx Instructions: Begin after completing 1 week course of topiramate 25 mg twice a day Qulipta 60 mg tablet 60 mg PO DAILY Qty: 30 4RF promethazine [promethazine] 25 MG tablet 25 mg PO Q6H PRN PRN (Reason: Nausea) Qty: 15 0RF sertraline 50 mg tablet 50 mg PO DAILY Primary Care Provider: Shai Hitchcock Referrals: Shai Hitchcock MD [Primary Care Provider] - 3-5 Days Disposition Disposition: Home, Self Care
[2023-05-31] MEDS: Metoclopramide 10 MG/2 ML Vial IV (09:33)
[2023-05-31] MEDS: DiphenhydrAMINE 50 MG/ML Syringe 25 MG IV (09:33)
[2023-05-31] MEDS: 0.9% Normal Saline (1000mL) 1,000 ML 999 ML IV (09:33)
[2023-05-31 09:38] LABS: Internal QC Validated? YES +Cl - CLEAR BKGD; Pregnancy, Urine Negative Negative
== END 2023-05-31 11:13 | disposition home or self-care (01) ==
PROVIDERS: Emergency Provider Emergency Medicine; PCP Family Medicine; Visit Provider Emergency Medicine
DX: G43.009 Migraine without aura, not intractable, without status migrainosus (principal)
CPT/HCPCS: 70450; 81025; 96361; 96372; 96374; 96375; 99283; J7030; A4216

== ENCOUNTER 2023-07-31 16:09 | Emergency (ER) | payer OTHER, MEDICAID, SELFPAY ==
[2023-07-31 16:09] VITALS: BP 117/76; PULSE 82; RESP 16; TEMP 36.6; O2SAT 100; BMI 27.6
--- NOTE | 2023-07-31 16:23 | ED.VIS.CHEST ---
HPI History of Present Illness Chief Complaint: Palpitations Informant: patient and spouse/S.O. Onset/Context/Timing Onset: Weeks (1) Timing: Intermittent (But very frequent for the past 2 days) and Lasts (Brief) Current Severity: Moderate Maximum Severity: Moderate Worsened By: Nothing (Seems to occur randomly) Relieved By: Nothing Associated Symptoms: Positive for Lightheadedness (At times but no syncope) Narrative Narrative: Patient presenting with palpitations to feel like skipping or beating hard her both off and on for the past week, much more frequent, relatively brief episodes, for the past 2 days. Today she is feeling very shaky and she does not know why. No syncopal episodes. Some chest discomfort earlier but not now. Hard to describe. States at times she feels like it is making it hard to breathe. Never had this before. Denies illicit drug use or IV drugs. Drinks caffeine via tea but not large amounts every day and no recent changes. She was on migraine prophylaxis medications but they were not working so she stopped taking them maybe a month ago, did not notice any of this upon stopping the medications. She denies any history of DVT or PE, no recent leg pain or swelling that she knows of. No recent hospitalization or surgery. [facility] Medical History Depression Hypothyroidism Migraine Home Medications levothyroxine 50 mcg tablet 50 mcg PO DAILY #30 tabs 01/12/21 [Rx Last Taken Unknown] promethazine 25 mg tablet 25 mg PO Q6H PRN PRN Nausea #15 TABLETS 08/30/21 [Rx Last Taken Unknown] sertraline 50 mg tablet 50 mg PO DAILY 10/12/21 [History Last Taken Unknown] atogepant 60 mg tablet (Qulipta) 60 mg PO DAILY #30 tabs 04/18/23 [Rx Last Taken Unknown] ondansetron 4 mg disintegrating tablet 4 mg PO Q8H PRN nausea and vomiting #90 tabs 04/18/23 [Rx Last Taken Unknown] rizatriptan 10 mg tablet 10 mg PO .COMPLEX migraine headache #9 tabs 04/18/23 [Rx Last Taken Unknown] topiramate 50 mg tablet 50 mg PO BID #60 tabs 04/18/23 [Rx Last Taken Unknown] metoprolol tartrate 25 mg tablet 12.5 mg (2 x 25 mg) PO BID #30 tabs 07/31/23 [Rx Last Taken Unknown] Allergy/AdvReac Type Severity Reaction Status Date / Time No Known Allergies Allergy Verified 07/31/23 16:09 Surgical History H/O tubal ligation Social History Smoking Status: Never smoker alcohol intake: never substance use type: does not use caffeine: Yes what type of physical activity do you participate in: none seatbelt use: always additional social history: Gertrudes ROS ROS ED Constitutional Constitutional ED: Denies chills or fever(s) Eyes Eyes: Denies change in vision or diplopia ENT ENT ED: Denies rhinorrhea or sore throat Cardiovascular Cardiovascular: Reports chest pain and palpitations; Denies orthopnea Respiratory/Chest Respiratory/Chest: Reports dyspnea; Denies cough, dyspnea on exertion or orthopnea Gastrointestinal Gastrointestinal: Reports other Details: States she had intermittent abdominal pain for a while that would occur before bowel movements and resolve afterwards, she would have to push to have bowel movements, but denies having any blood or mucus. Has not had any abdominal pain since these palpitations have occurred the past week. ; Denies abdominal pain, diarrhea, nausea or vomiting Genitourinary Genitourinary ED: Denies dysuria, hematuria or urinary frequency Musculoskeletal Musculoskeletal: Denies back pain or neck pain Integumentary Denies abscess or rash Neurologic Neurologic: Denies headache(s), paresthesias or weakness Psychiatric Psychiatric: Denies suicidal ideation or suicidal thoughts Endocrine Endocrinology: Reports other Details: Shaky although does not feel cold EXAM Physical Exam Const Vital Signs: 07/31/23 16:09 07/31/23 16:28 07/31/23 17:29 Temperature 97.8 F Temperature Source Temporal Pulse Rate 82 85 Respiratory Rate 16 19 H Blood Pressure 117/76 110/64 Blood Pressure Mean 89 79 Pulse Ox 100 Oxygen Delivery Method Room Air Room Air 07/31/23 17:56 Temperature Temperature Source Pulse Rate 82 Respiratory Rate 16 Blood Pressure 106/70 Blood Pressure Mean 82 Pulse Ox 100 Oxygen Delivery Method Room Air Positive well nourished and well developed Constitutional Narrative: Tremulous/shaky, NAD General Appearance ED: well developed and NAD HEENT Reports moist mucous membranes normocephalic and atraumatic Eyes PERRL and EOMs intact bilaterally Neck full ROM, supple and no JVD Resp normal respiratory effort and clear to auscultation bilaterally Cardio regular rate, regular rhythm and no murmurs Rate: other Other Details: During exam, for about 30 seconds of listening, no irregularities ; Negative for tachycardic GI non-tender and non-distended Auscultation: normoactive bowel sounds Palpation: soft Back/Spine no CVA tenderness General Back: other FROM Extremity normal to inspection and no calf tenderness General Extremety ED: Negative for edema, pulses abnormal or tenderness General Extremity: Negative for edema or pulses abnormal Neuro oriented x3, CN's II-XII intact bilaterally and no sensory deficits noted Sensorium / Orientation: awake and alert Motor Exam: strength 5/5 throughout Psych Attitude: No agitated Mood & Affect: anxious; Negative for depressed Skin no rashes or lesions noted and no wounds MDM MDM MDM Narrative Medical decision making narrative: We will place patient on the monitor, she did have some isolated PVCs and also a couple episodes of bigeminy, she seems to be feeling symptoms more with that than the isolated PVCs. However for several hours while we were working her up, her blood hemolyzed and had to be redrawn that she was here a little longer, she had no further symptoms even without treatment. There were no dysrhythmias. Differential is broad here, including structural heart problems, less likely to be acute coronary syndrome, myocarditis, PE neuroma possibility, electrolyte disturbance, toxins or stimulants, although she is not a cocaine user and does not use heavy amounts of caffeine. Electrolytes are normal, blood counts normal troponin negative, and D-dimer well within normal limits ruling out pulmonary embolus as etiology for the symptoms. I think her chest discomfort and dyspnea are likely secondary symptoms of having ventricular bigeminy. Given how symptomatic she has been in the last week, I am going to give her prescription for metoprolol 12.5 mg twice daily, we discussed side effect of fatigue and the fact that she can try this for couple days if it makes her tired she could stop it, and to follow-up with cardiology and/or PCP for possible further evaluation and work-up. Lab Data Attestation: I reviewed the patient's lab results. Labs: Laboratory Results - last 24 hr 07/31/23 07/31/23 07/31/23 16:45 16:45 17:20 WBC Cancelled 7.7 Corrected WBC Cancelled RBC Cancelled 4.64 Hgb Cancelled 14.3 Hct Cancelled 43.1 MCV Cancelled 92.9 MCH Cancelled 30.8 MCHC Cancelled 33.2 RDW Std Deviation Cancelled 39.6 RDW Coeff of Anna Cancelled 11.7 Plt Count Cancelled 322 MPV Cancelled 10.1 Immature Gran % (Auto) Cancelled 0.400 Neut % (Auto) Cancelled 57.0 Lymph % (Auto) Cancelled 28.2 Bennett % (Auto) Cancelled 10.7 H Eos % (Auto) Cancelled 2.7 Baso % (Auto) Cancelled 1.0 Absolute Neuts (auto) Cancelled 4.4 Absolute Lymphs (auto) Cancelled 2.16 Total Counted Cancelled Neutrophils % (Manual) Cancelled Band Neutrophils % Cancelled Lymphocytes % (Manual) Cancelled Monocytes % (Manual) Cancelled Eosinophils % (Manual) Cancelled Basophils % (Manual) Cancelled Metamyelocytes % Cancelled Myelocytes % Cancelled Promyelocytes % Cancelled Blast Cells % Cancelled Plasma Cell % (Manual) Cancelled Other Cells % Cancelled Nucleated RBC % Cancelled 0 Nucleated RBCs/100 WBC Cancelled Differential Comment Cancelled Diff Path Review Cancelled Hypersegmented Neuts Cancelled Atypical Lymphocytes Cancelled Reactive Lymphocytes Cancelled Smudge Cells Cancelled Toxic Granulation Cancelled Toxic Vacuolation Cancelled Dohle Bodies Cancelled Umm Rods Cancelled Platelet Estimate Cancelled Plt Morphology Comment Cancelled RBC Morphology Cancelled Cancelled Polychromasia Cancelled Hypochromasia Cancelled Poikilocytosis Cancelled Basophilic Stippling Cancelled Anisocytosis Cancelled Microcytosis Cancelled Macrocytosis Cancelled Spherocytes Cancelled Sickle Cells Cancelled Target Cells Cancelled Tear Drop Cells Cancelled Ovalocytes Cancelled Stomatocytes Cancelled [place] Bodies Cancelled Dale Cells Cancelled Bite Cells Cancelled Crenated Cell Cancelled Acanthocytes (Spur) Cancelled Rouleaux Cancelled Schistocytes Cancelled D-Dimer Quant (PE/DVT) Cancelled 0.30 Sodium 139 Potassium 4.3 Chloride 104 Carbon Dioxide 30.0 Anion Gap 5 BUN 8 Creatinine 0.81 Estim Creat Clear Calc 80.32 Est GFR (MDRD) Af Amer 106 Est GFR (MDRD) Non-Af 88 BUN/Creatinine Ratio 9.9 L Glucose 101 Calcium 9.1 Troponin I High Sens < 3 L TSH 4.97 H Radiography Chest X-Ray - ED: 1 View, Read by ED Physician and No Acute Disease Diagnostic Testing: Clinical Impression(s) from Imaging Studies Chest X-Ray 07/31/23 17:40 IMPRESSION: Normal x-ray examination of the chest. Electronically Signed: Joel Salazar MD at 18:16 EST , Rhythm Strip Rhythm Strip: Sinus Rhythm Rate: 93 Ectopy: PVC(s) EKG Initial EKG: Attestation: I personally reviewed and interpreted this EKG as follows: Interpretation: Sinus Rhythm and No Acute Injury Pattern Comments: nml EKG except nonspecific T wave flattening V2-3 Prior EKG tracings: available for review Prior: Unchanged (V2 inverted, V3 flat on prior) Discharge Plan Triage Chief Complaint: Palpitations ED Provider: Marcel Paz Dx/Rx/DC Orders Clinical Impression: Heart palpitations, Frequent unifocal PVCs, Ventricular bigeminy Instructions: PVCs Prescriptions: New metoprolol tartrate 25 mg tablet 12.5 mg PO BID Qty: 30 0RF No Action levothyroxine 50 mcg tablet 50 mcg PO DAILY Qty: 30 12RF rizatriptan 10 mg tablet 10 mg PO .COMPLEX Qty: 9 5RF Rx Instructions: Take 1 tablet orally every two hours as needed for headache up to three tablets per day ondansetron 4 mg tablet,disintegrating 4 mg PO Q8H PRN (Reason: nausea and vomiting) Qty: 90 5RF topiramate 50 mg tablet 50 mg PO BID Qty: 60 5RF Rx Instructions: Begin after completing 1 week course of topiramate 25 mg twice a day Qulipta 60 mg tablet 60 mg PO DAILY Qty: 30 4RF promethazine [promethazine] 25 MG tablet 25 mg PO Q6H PRN PRN (Reason: Nausea) Qty: 15 0RF sertraline 50 mg tablet 50 mg PO DAILY Primary Care Provider: Shai Hitchcock Referrals: Alannah Tobar MD [Med Staff - Active Staff] - As soon as possible Shai Hitchcock MD [Primary Care Provider] - Disposition Disposition: Home, Self Care
[2023-07-31 16:28] VITALS: BP 110/64; PULSE 85; RESP 19
[2023-07-31 17:24] LABS: Anion Gap 5 (5-15); BUN 8 mg/dL (7-18); BUN/Creat Ratio 9.9 RATIO (10-20); Calcium,Total 9.1 mg/dL (8.5-10.1); Chloride 104 mmol/L (98-107); Creatinine, Serum 0.81 mg/dL (0.55-1.02); EST Glomerular Filtration Rate 88 mL/min (>60); Est Glom Filt Rate - Afr Amer 106 mL/min (>60); Estimated Creatinine Clearance 80.32 ml/min; Glucose 101 mg/dL (74-106); Potassium 4.3 mmol/L (3.5-5.1); Sodium Level 139 mmol/L (136-145); Thyroid Stim Hormone (TSH) 4.97 uIU/mL (0.358-3.74); Troponin-I HS < 3 pg/mL (3.0-54.0)
--- NOTE | 2023-07-31 17:40 | RAD_ITS ---
STUDY: X-RAY CHEST REASON FOR EXAM: Female, 32 years old. chest pain TECHNIQUE: Single AP portable view of the chest. COMPARISON: None. FINDINGS: The lungs are clear and expanded. There is no demonstrated pleural abnormality. Normal size heart. Normal mediastinum and susan. Normal visualized pulmonary arteries. Normal visualized aortic arch and descending thoracic aorta. Normal visualized thoracic spine. Normal visualized ribs, clavicles, and shoulders. There is no demonstrated abnormality of the visualized soft tissue structures of the upper abdomen. RAD/Chest 1 View (Portable) IMPRESSION: Normal x-ray examination of the chest. Electronically Signed: Joel Salazar MD at 18:16 [facility] ,
[2023-07-31 17:51] LABS: Absolute Lymphocyte Count 2.16 X10^3/uL (0.83-4.51); Absolute Neutrophil Count 4.4 X10^3/uL (2.0-7.7); Basophil# 0.08 X10^3/uL; Eosinophil# 0.21 X10^3/uL; Eosinophils% 2.7 % (0-5); Hematocrit 43.1 % (37-47); Hemoglobin 14.3 g/dL (12.0-15.0); Lymphocyte # 2.16 X10^3/ul (0.83-4.51); Lymphocyte % 28.2 % (19-41); Mean Corp Hgb Conc 33.2 g/dL (32-36); Mean Corpuscular Hgb 30.8 pg (27.0-32.0); Mean Corpuscular Volume 92.9 fL (81-99); Mean Platelet Vol. 10.1 fl (6.2-12.0); Monocyte# 0.82 X10^3/uL; Monocyte% 10.7 % (0-10); NRBC Flagged by Analyzer 0 % (0-5); Neutrophil # 4.37 X10^3/uL (2.7-7.7); Platelet Count 322 K/mm3 (150-450); RBC Distribution Width CV 11.7 % (11.6-14.6); RBC Distribution Width SD 39.6 fl (35.1-43.9); Red Blood Count 4.64 M/mm3 (4.2-5.4); White Blood Count 7.7 K/mm3 (4.4-11.0)
[2023-07-31 17:56] VITALS: BP 106/70; PULSE 82; RESP 16; O2SAT 100
== END 2023-07-31 18:48 | disposition home or self-care (01) ==
PROVIDERS: Emergency Provider Emergency Medicine; PCP Family Medicine; Visit Provider Emergency Medicine
DX: I49.3 Ventricular premature depolarization (principal); R00.2 Palpitations; Z79.899 Other long term (current) drug therapy; R07.9 Chest pain, unspecified; R06.00 Dyspnea, unspecified
CPT/HCPCS: 71045; 80048; 84443; 84484; 85025; 85379; 93005; 99283; A4216